=== PATIENT | male | born 1965 | race Caucasian/White ===

== ENCOUNTER 2017-12-03 14:36 | Emergency (ER) | payer BC, SELFPAY ==
[2017-12-03 14:37] VITALS: BP 144/101; PULSE 122; RESP 17; TEMP 36.9; O2SAT 98; BMI 30.9
--- NOTE | 2017-12-03 15:18 | EKG12_ITS ---
Test Reason : HYPERTENSION Blood Pressure : / mmHG Vent. Rate : 090 BPM Atrial Rate : 090 BPM P-R Int : 148 ms QRS Dur : 100 ms QT Int : 358 ms P-R-T Axes : 043 039 012 degrees QTc Int : 437 ms Normal sinus rhythm Normal ECG Confirmed by GRUPO WATERS, DIANA ([id number]), story editor IDALIA CARTWRIGHT ([id number]) on 12/05/2017 3:04:23 PM Referred By: CAROLIN Confirmed By:DIANA LOMBARDO MD
[2017-12-03 16:12] LABS: Absolute Lymphocyte Count 1.62 X10^3/ul (0.83-4.51); Absolute Neutrophil Count 4.3 X10^3/uL (2.0-7.7); Basophil# 0.03 X10^3/uL; Basophil% 0.5 % (0-1); Eosinophil# 0.06 X10^3/uL; Eosinophils% 0.9 % (0-5); Hematocrit 46.2 % (40-54); Hemoglobin 14.9 g/dl (13.0-16.5); Lymphocyte # 1.62 X10^3/ul (4.0); Mean Corp Hgb Conc 32.3 g/gl (32-36); Mean Corpuscular Volume 83.8 fL (80-94); Mean Platelet Vol. 9.4 fl (6.2-12.0); Monocyte# 0.48 X10^3/uL; Monocyte% 7.4 % (0-10); Neutrophil # 4.27 X10^3/uL (2.7-7.7); Platelet Count 239 K/mm3 (150-450); RBC Distribution Width CV 14.3 % (11.6-14.6); RBC Distribution Width SD 43.9 fl (35.1-43.9); Red Blood Count 5.51 M/mm3 (4.6-6.2); White Blood Count 6.5 K/mm3 (4.4-11.0)
[2017-12-03 16:23] LABS: POSITIVE COUNT NO; POSITIVE DIFFERENTIAL NO; POSITIVE MORPHOLOGY NO
[2017-12-03 16:34] VITALS: BP 140/89; PULSE 87; RESP 16
[2017-12-03 16:37] LABS: Anion Gap 6 (5-15); BUN 23 mg/dL (7-18); BUN/Creat Ratio 23.6 RATIO (10-20); Chloride 102 mmol/L (98-107); Creatinine, Serum 0.97 mg/dL (0.70-1.30); EST Glomerular Filtration Rate 85 mL/min (>60); Est Glom Filt Rate - Afr Amer 103 mL/min (>60); Estimated Creatinine Clearance 88.07 ml/min; Glucose 126 mg/dL (74-106); Potassium 4.4 mmol/L (3.5-5.1); Sodium Level 139 mmol/L (136-145)
--- NOTE | 2017-12-03 16:51 | ED.VISSUMM ---
- ER Visit Summary Date of Service: 12/03/17 Chief Complaint: Hypertension History of Present Illness: The patient is a 52 M who presents with elevated blood pressure. He is checked multiple times today and it was 184/95 and 160/105. He is using an arm cuff for this. He has a history of hypertension. He takes lisinopril/HCTZ 20/12.5. This is a recent increase in dosage for him. He denies any symptoms. He was recently placed on prednisone for chronic back pain. Physical Examination: Vital signs reviewed. HEENT exam unremarkable. Heart is regular rate and rhythm without murmurs. Lungs are clear to auscultation. Abdomen is soft and nontender. Extremities reveal no edema. Exam reveals midthoracic tenderness to palpation skin exam normal. Neurologic exam normal. Test Results: EKG is normal sinus rhythm with a rate of 90. No ST changes. Labs are normal except for glucose of 126 Emergency Department Course and Treatment: Patient was observed. Repeat blood pressure was 140/80 and then it went up to 150/100. I did give him 1 dose of lisinopril here. He will go home and continue his regular dose. He will keep a diary of his blood pressure readings and will follow up with his physician on Tuesday Treatment Plan: [] Disposition: Discharge Impression: Hypertension This note was generated with [employer] dictation software. It may contain incorrect words, spelling, and punctuation that were not noted in review of the chart prior to signing ED Disposition - Plan for ED Patient: Disposition: Home or Assisted Living Chief Complaint: Hypertension Instructions: ED HTN Established Referrals: James Rizzo MD [Primary Care Provider] -
[2017-12-03] MEDS: Lisinopril 10 MG Tablet PO (17:57)
[2017-12-03 17:58] VITALS: BP 143/96; PULSE 90; RESP 16
== END 2017-12-03 17:58 | disposition home or self-care (01) ==
PROVIDERS: Emergency Provider Emergency Medicine; Family Provider Family Medicine; PCP Family Medicine
DX: I10 Essential (primary) hypertension (principal); M54.9 Dorsalgia, unspecified; G89.29 Other chronic pain; K50.90 Crohn's disease, unspecified, without complications; Z79.82 Long term (current) use of aspirin; Z79.52 Long term (current) use of systemic steroids; Z79.899 Other long term (current) drug therapy
CPT/HCPCS: 80048; 85025; 93005; 99285; A4216

== ENCOUNTER 2018-06-23 22:24 | Emergency (ER) | payer BC, SELFPAY ==
[2018-06-23 22:26] VITALS: BP 119/77; PULSE 76; RESP 17; TEMP 36.8; O2SAT 97; BMI 30.8
--- NOTE | 2018-06-23 22:50 | CT_ITS ---
STUDY: CT ABDOMEN AND PELVIS WITHOUT CONTRAST REASON FOR EXAM: Male, 53 years old. Left lower quadrant pain and cramping, syncope x2, history of HMD, HTN, 80th, cholecystectomy. RADIATION DOSAGE (If Supplied By Facility): CTDIvol = ( 11.59 ) mGy, DLP = ( 642.81 ) mGycm TECHNIQUE: Transaxial 2.5 mm images were obtained from the dome of the diaphragm to the symphysis pubis without oral contrast, and without intravenous contrast. Sagittal and coronal images were reconstructed. This examination is limited for the evaluation of gastrointestinal, solid organs and vascular structures due to the lack of intravenous and oral contrast. Individualized dose optimization techniques were used for this CT. COMPARISON: CT abdomen and pelvis 07/22/2011 FINDINGS: The visualized lung bases are unremarkable. The visualized portions of the heart are within normal limits. Stable low-attenuation left hepatic lobe of approximately 0.8 x 1.4 cm. The smaller low attenuation in the right hepatic lobe on previous contrast enhanced CT is not appreciated on noncontrast current images. There are surgical clips in the gallbladder fossa consistent with a prior cholecystectomy. Normal spleen. Normal pancreas. Normal bilateral adrenal glands. The bilateral renal cysts on previous examination have increased in size, on the right side measuring 5.3 x 4.8 cm, there is a question of a additional smaller cyst and or septation coronal image 87, axial image 89 series 2. The left upper renal pole cyst has increased in size, currently measuring 3.3 x 4.2 cm, the posterior mid left renal cortical cyst has increased in size measuring currently 1.4 x 1.5 cm. There is no obstructive uropathy, obstructive renal or ureteral calculi. Normal visualized stomach. Normal small intestine. Normal colon. The appendix is visualized and appears normal. Image 69 series 601. Normal abdominal aorta. Normal inferior vena cava. Normal retroperitoneum. Normal urinary bladder. There is enlargement of the prostate gland. There is a small umbilical hernia containing fat. There is a large left inguinal hernia containing sigmoid colon without caliber change, dilatation or signs of ischemia. The hernia opening is 2.3 cm. The hernia sac measures at least 5.2 x 4.3 x 12 cm, however the inferior extension is not entirely imaged. There are degenerative changes of the visualized spine. There is straightening of the normal lordotic curve, a nonspecific finding, which may be due to positioning or which might be due to muscle spasm. CT/Abdomen/Pelvis without Cont IMPRESSION: 1. Left large inguinal hernia which appears to be increased in size and currently containing sigmoid colon without obstruction or compromise. 2. Bilateral renal cysts appear increased in size. The large right renal cyst may be complex, ultrasonographic correlation advised. 3. Stable low attenuation in the left hepatic lobe may represent cysts or hemangiomata. 4. Status post cholecystectomy. 5. Small umbilical hernia containing fat. 6. Prostate enlargement appears stable. Electronically Signed: Sybil Bautista MD at 0:35 EDT , Service support ,
--- NOTE | 2018-06-23 22:52 | ED.DCSUM_ITS ---
- ER Visit Summary Date of Service: 06/23/18 Chief Complaint: Abdominal pain, syncope History of Present Illness: The patient is a 53 M presents with family increasing left lower quadrant abdominal pain 1 hour prior to arrival. States was on the commode, got sweaty, called in significant other, he does try to walk, syncopal episode. Spouse caught him, but slightly bumped his head on the wall. This occurred twice. There is no current headache. States left lower quadrant pain has subsided. History of Crohn's disease currently not on medications. Multiple colonoscopies, last time was 5 years ago. No history of diverticulitis. Urine frequency. Normal bowel movements. No chest pains or shortness of breath. History of cholecystectomy. Physical Examination: General: Alert and oriented ?3, no acute distress HEENT: Normocephalic, atraumatic. Moist mucosa membranes Neck: supple, nontender. Cardiovascular: Regular rate and rhythm, no murmurs Respiratory: Normal breath sounds, symmetric, no distress Abdomen: Soft, left lower quadrant tenderness with deep palpation no guarding or rebound, nondistended, negative McBurney's or Maya's. Extremities: Nontender, no edema, pulses intact ?4 Neuro: no focal neurological deficits. Test Results: EKG: Sinus rate of 72, no ST changes. Isolated T wave inversion in leads III. White count 12. Hemoglobin 14. Creatinine 0.75. UA 25 leukocytes, blood 10. Urine culture pending. CT scan abdomen pelvis, large left inguinal hernia without obstruction or compromise, bilateral renal cysts. Emergency Department Course and Treatment: Patient left lower quadrant pain, nonsurgical abdomen. Patient with pain initially then syncopal episode likely vasovagal. EKG was normal. No chest pains or shortness of breath. Left lower quadrant workup initiated, white count 12. CAT scan shows no inflammatory changes however noted left inguinal hernia with no obstruction or strangulation. Also noted renal cyst, he has no flank pain. Urine noted leukocytes slight bl ood. Culture sent. On reevaluation check hernia region, he is nontender in this region, hernia was palpated. Started on Cipro. Discuss follow-up with his surgeon Dr. Chaparro as an outpatient. Signs and symptoms discussed to return. No heavy lifting. Reevaluation abdomen was soft and benign. Treatment Plan: [] Disposition: Discharge Impression: 1. Urinary tract infection 2. Left inguinal hernia nonobstructive This note was generated with [employer] dictation software. It may contain incorrect words, spelling, and punctuation that were not noted in review of the chart prior to signing ED Disposition - Plan for ED Patient: Disposition: Home or Assisted Living Chief Complaint: Syncope Diagnosis: Syncope and collapse, Left inguinal hernia, UTI (urinary tract infection) Instructions: ED Syncope Vasovagal, ED Hernia Inguinal, Understanding Urinary Tract Infections (UTIs) Prescriptions: Ciprofloxacin [Cipro] 500 mg PO BID #20 tablet Referrals: James Rizzo MD [Primary Care Provider] - Francisco Rviera MD [STAFF PHYSICIAN] - 3-5 Days Additional Instructions: Left inguinal hernia. No signs of obstruction or incarceration. No heavy lifting. Call your surgeon for follow-up, return if any worsening symptoms.
--- NOTE | 2018-06-23 22:53 | EKG12_ITS ---
Test Reason : SYNCOPE Blood Pressure : / mmHG Vent. Rate : 072 BPM Atrial Rate : 072 BPM P-R Int : 148 ms QRS Dur : 098 ms QT Int : 394 ms P-R-T Axes : 036 051 023 degrees QTc Int : 431 ms Poor data quality, interpretation may be adversely affected Normal sinus rhythm Normal ECG Confirmed by MOON WATERS, GUNNER ([id number]), purchase request editor IDALIA CARTWRIGHT ([id number]) on 06/26/2018 3:05:11 PM Referred By: KARIS Confirmed By:GUNNER MUSTAFA MD
[2018-06-23 23:13] LABS: Red Blood Cells-Urine 0 SEEN /hpf (0-5); Squamous Epithelial Cells - UA 0 SEEN /hpf (0-5)
[2018-06-23 23:26] LABS: Color, Urine Yellow (Yellow); Glucose, Dipstick Normal (Normal); Ketone-Dipstick 5 mg/dl (Negative); Leukocyte Esterase-Dipstick 25 /ul (Negative); Nitrite-Dipstick Negative (Negative); Occult Blood-Urine 10 /ul (Negative); Protein-Dipstick 30 mg/dl (Negative); Urine Bilirubin Dipstick Negative (Negative); Urine Clarity Clear (Clear); Urine Urobilinogen 1 mg/dl (Normal)
[2018-06-23] MEDS: 0.9% Normal Saline 1,000 ML 1000 ML IV (23:28)
[2018-06-23 23:38] LABS: Bacteria RARE /hpf (None Seen); Hyaline Cast 0-5 SEEN /lpf (0-5); Mucous, Urine 1+ /hpf (<or=2+); White Blood Cells 0-5 SEEN /hpf (0-5)
[2018-06-23 23:44] LABS: Absolute Lymphocyte Count 2.04 X10^3/ul (0.83-4.51); Absolute Neutrophil Count 9.2 X10^3/uL (2.0-7.7); Basophil# 0.03 X10^3/uL; Basophil% 0.3 % (0-1); Eosinophil# 0.04 X10^3/uL; Eosinophils% 0.3 % (0-5); Hematocrit 42.6 % (40-54); Hemoglobin 14.1 g/dl (13.0-16.5); Lymphocyte # 2.04 X10^3/ul (4.0); Mean Corp Hgb Conc 33.1 g/gl (32-36); Mean Corpuscular Hgb 27.4 pg (27.0-32.0); Mean Corpuscular Volume 82.7 fL (80-94); Mean Platelet Vol. 9.4 fl (6.2-12.0); Monocyte# 0.67 X10^3/uL; Monocyte% 5.6 % (0-10); Neutrophil # 9.18 X10^3/uL (2.7-7.7); Neutrophil % 76.6 % (47-70); Platelet Count 279 K/mm3 (150-450); RBC Distribution Width CV 14.2 % (11.6-14.6); RBC Distribution Width SD 42.3 fl (35.1-43.9); Red Blood Count 5.15 M/mm3 (4.6-6.2)
[2018-06-23 23:49] LABS: POSITIVE COUNT NO; POSITIVE DIFFERENTIAL NO; POSITIVE MORPHOLOGY NO
[2018-06-23 23:54] LABS: Anion Gap 11 (5-15); BUN 20 mg/dL (7-18); BUN/Creat Ratio 21.1 RATIO (10-20); Calcium,Total 9.1 mg/dL (8.5-10.1); Chloride 104 mmol/L (98-107); Creatinine, Serum 0.95 mg/dL (0.70-1.30); EST Glomerular Filtration Rate 88 mL/min (>60); Est Glom Filt Rate - Afr Amer 107 mL/min (>60); Estimated Creatinine Clearance 91.78 ml/min; Glucose 128 mg/dL (74-106); Potassium 3.3 mmol/L (3.5-5.1); Sodium Level 142 mmol/L (136-145)
[2018-06-24 00:25] VITALS: BP 115/72; PULSE 76; RESP 18; O2SAT 96
[2018-06-24 01:00] VITALS: BP 136/84; PULSE 79; RESP 18; O2SAT 97
[2018-06-24] MEDS: Ciprofloxacin 500 MG Tablet PO (01:37)
== END 2018-06-24 01:40 | disposition home or self-care (01) ==
PROVIDERS: Emergency Provider Emergency Medicine; Family Provider Family Medicine; PCP Family Medicine
DX: N39.0 Urinary tract infection, site not specified (principal); K40.90 Unilateral inguinal hernia, without obstruction or gangrene, not specified as recurrent; R55 Syncope and collapse; N28.1 Cyst of kidney, acquired; K21.9 Gastro-esophageal reflux disease without esophagitis; I10 Essential (primary) hypertension; E78.00 Pure hypercholesterolemia, unspecified; K50.90 Crohn's disease, unspecified, without complications; Z90.49 Acquired absence of other specified parts of digestive tract; Z79.82 Long term (current) use of aspirin; Z79.899 Other long term (current) drug therapy
CPT/HCPCS: 74176; 80048; 81001; 85025; 87086; 87088; 93005; 96360; 99285; J7030; A4216

== ENCOUNTER 2018-06-24 13:07 | Observation (INO) | payer BC, SELFPAY ==
[2018-06-24 13:10] VITALS: BP 146/87; PULSE 109; RESP 20; TEMP 36.7; O2SAT 97
[2018-06-24 13:25] VITALS: BP 150/93; PULSE 111; RESP 18; O2SAT 97
[2018-06-24 13:31] LABS: Bedside Glucose 152 mg/dL (70-110)
[2018-06-24] MEDS: 0.9% Normal Saline 1,000 ML 1000 ML IV (14:00)
[2018-06-24 14:11] LABS: Bacteria 0 SEEN /hpf (None Seen); Mucous, Urine 0 SEEN /hpf (<or=2+); Red Blood Cells-Urine 0 SEEN /hpf (0-5); Squamous Epithelial Cells - UA 0 SEEN /hpf (0-5); White Blood Cells 0 SEEN /hpf (0-5)
[2018-06-24 14:14] LABS: Absolute Neutrophil Count 6.9 X10^3/uL (2.0-7.7); Basophil# 0.02 X10^3/uL; Basophil% 0.2 % (0-1); Eosinophil# 0.02 X10^3/uL; Eosinophils% 0.2 % (0-5); Hemoglobin 13.6 g/dl (13.0-16.5); Lymphocyte % 18.8 % (19-41); Mean Corp Hgb Conc 32.4 g/gl (32-36); Mean Corpuscular Volume 83.5 fL (80-94); Mean Platelet Vol. 9.2 fl (6.2-12.0); Monocyte# 0.43 X10^3/uL; Monocyte% 4.8 % (0-10); Neutrophil # 6.85 X10^3/uL (2.7-7.7); Neutrophil % 75.8 % (47-70); Platelet Count 244 K/mm3 (150-450); RBC Distribution Width CV 14.2 % (11.6-14.6); RBC Distribution Width SD 43.2 fl (35.1-43.9); Red Blood Count 5.03 M/mm3 (4.6-6.2)
[2018-06-24 14:16] LABS: Color, Urine Yellow (Yellow); Glucose, Dipstick Normal (Normal); Ketone-Dipstick Negative (Negative); Leukocyte Esterase-Dipstick Negative /ul (Negative); Nitrite-Dipstick Negative (Negative); Occult Blood-Urine Negative /ul (Negative); Protein-Dipstick Negative (Negative); Urine Bilirubin Dipstick Negative (Negative); Urine Clarity Clear (Clear); Urine Urobilinogen Normal (Normal)
[2018-06-24 14:16] LABS: POSITIVE COUNT NO; POSITIVE DIFFERENTIAL NO; POSITIVE MORPHOLOGY NO
[2018-06-24 14:32] LABS: AST(SGOT) 27 U/L (15-37); Alanine Aminotransfer ALT/SGPT 42 U/L (16-61); Albumin, Serum 3.8 g/dL (3.2-5.0); Alkaline Phosphatase 75 U/L (45-117); Anion Gap 7 (5-15); BUN 19 mg/dL (7-18); BUN/Creat Ratio 20.2 RATIO (10-20); Calcium,Total 8.8 mg/dL (8.5-10.1); Chloride 102 mmol/L (98-107); Creatinine, Serum 0.94 mg/dL (0.70-1.30); EST Glomerular Filtration Rate 89 mL/min (>60); Est Glom Filt Rate - Afr Amer 107 mL/min (>60); Estimated Creatinine Clearance 92.76 ml/min; Globulin 3.9 g/dL (2.2-4.2); Glucose 159 mg/dL (74-106); Potassium 3.5 mmol/L (3.5-5.1); Protein, Total 7.7 g/dL (6.4-8.2); Sodium Level 137 mmol/L (136-145)
[2018-06-24 15:02] LABS: Lactic Acid 1.7 mmol/L (0.4-2.0)
[2018-06-24 15:15] VITALS: BP 167/86
--- NOTE | 2018-06-24 15:20 | ED.VISSUMM ---
- ER Visit Summary Date of Service: 06/24/18 Chief Complaint: [Abdominal pain and rectal bleeding] History of Present Illness: The patient is a 53 M [presents the emergency department complaint of abdominal pain and back pain that started initially yesterday. Patient was seen in the emergency department yesterday and had blood work as well as urinalysis and a CT scan of the pelvis that was unremarkable. Patient was diagnosed with a urinary tract infection and started on Cipro. Today patient is feeling very weak and continues to have lower abdominal pain and cramping as well as pain in his low back that is diffuse. Patient states that yesterday he did have 2 episodes of syncope. Patient does have a history of colitis. He is not on any blood thinners. He denies any fevers. He denies recent travel or surgery. He denies any recent antibiotic usage other than the Cipro that he was started on yesterday.] Physical Examination: [HEENT-PERRLA, EOMI. Cranial nerves II through XII grossly intact. TMs clear. Mucous membranes moist. No adenopathy. Cardiovascular-regular rate and rhythm without murmur or ectopy Lungs-clear to auscultation, chest wall stable without crepitus or subcu emphysema Abdomen-normoactive bowel sounds, soft. Patient has diffuse tenderness on palpation. There is no rebound, rigidity, or perineal signs. Rectal exam-patient had no rectal fissures noted and no hemorrhoids noted. There was bright red blood noted on the finger. With no significant stool in the rectal vault. Extremities-intact ?4, normal range of motion, normal pulses, atraumatic] Test Results: [CBC with differential obtained showed a white count 9.0, hemoglobin 13.6, hematocrit 42, platelet 249. Chemistries unremarkable. LFTs unremarkable. Urinalysis was unremarkable.] Emergency Department Course and Treatment: [I evaluated patient's CT results from yesterday and it was noted that patient had a large left inguinal hernia with part of the colon within it but no evidence of obstruction or incarceration. Patient really has no tenderness over this area. This point given that he is having bright red blood from his rectum recommended admission.] Treatment Plan: [Admit for further workup and evaluation.] Disposition: [Admit] Impression: [Abdominal pain Rectal bleeding lower-stable] This note was generated with [employer] dictation software. It may contain incorrect words, spelling, and punctuation that were not noted in review of the chart prior to signing ED Disposition - Plan for ED Patient: Chief Complaint: General Illness Referrals: James Rizzo MD [Primary Care Provider] -
--- NOTE | 2018-06-24 15:24 | ED.DCSUM_ITS ---
- ER Visit Summary Date of Service: 06/24/18 Chief Complaint: [Abdominal pain and rectal bleeding] History of Present Illness: The patient is a 53 M [presents the emergency department complaint of abdominal pain and back pain that started initially yesterday. Patient was seen in the emergency department yesterday and had blood work as well as urinalysis and a CT scan of the pelvis that was unremarkable. Patient was diagnosed with a urinary tract infection and started on Cipro. Today patient is feeling very weak and continues to have lower abdominal pain and cramping as well as pain in his low back that is diffuse. Patient states that yesterday he did have 2 episodes of syncope. Patient does have a history of colitis. He is not on any blood thinners. He denies any fevers. He denies recent travel or surgery. He denies any recent antibiotic usage other than the Cipro that he was started on yesterday.] Physical Examination: [HEENT-PERRLA, EOMI. Cranial nerves II through XII grossly intact. TMs clear. Mucous membranes moist. No adenopathy. Cardiovascular-regular rate and rhythm without murmur or ectopy Lungs-clear to auscultation, chest wall stable without crepitus or subcu emphysema Abdomen-normoactive bowel sounds, soft. Patient has diffuse tenderness on palpation. There is no rebound, rigidity, or perineal signs. Rectal exam-patient had no rectal fissures noted and no hemorrhoids noted. There was bright red blood noted on the finger. With no significant stool in the rectal vault. Extremities-intact ?4, normal range of motion, normal pulses, atraumatic] Test Results: [CBC with differential obtained showed a white count 9.0, hemoglobin 13.6, hematocrit 42, platelet 249. Chemistries unremarkable. LFTs unremarkable. Urinalysis was unremarkable.] Emergency Department Course and Treatment: [I evaluated patient's CT results from yesterday and it was noted that patient had a large left inguinal hernia with part of the colon within it but no evidence of obstruction or inca rceration. Patient really has no tenderness over this area. This point given that he is having bright red blood from his rectum recommended admission.] Treatment Plan: [Admit for further workup and evaluation.] Disposition: [Admit] Impression: [Abdominal pain Rectal bleeding lower-stable] This note was generated with [employer] dictation software. It may contain incorrect words, spelling, and punctuation that were not noted in review of the chart prior to signing ED Disposition - Plan for ED Patient: Chief Complaint: General Illness Referrals: James Rizzo MD [Primary Care Provider] -
--- NOTE | 2018-06-24 15:57 | HP.PCM_ITS ---
Problem List (1) Syncope and collapse Status: Resolved (2) Left inguinal hernia Status: Chronic (3) UTI (urinary tract infection) Status: Acute (4) Dysphagia Status: Resolved (5) Anxiety Status: Chronic (6) Enlarged prostate Status: Chronic (7) Chronic low back pain Status: Chronic (8) Insomnia Status: Chronic (9) Poor dentition Status: Chronic (10) IBS (irritable bowel syndrome) Status: Chronic (11) HLD (hyperlipidemia) Status: Chronic (12) Ulcerative colitis Status: Chronic (13) Enlarged tonsils Status: Resolved (14) Benign essential HTN Status: Chronic History of Present Illness Date of Admission: 06/24/18 Chief Complaint: Abdominal pain, diarrhea, blood per rectum. The patient is a 53 year old M who presents to the Emergency Room due to abdominal pain, diarrhea and blood per rectum. Patient was initially seen in the emergency room yesterday due to abdominal pain and lower back pain. He was diagnosed with UTI at that time and was started on Cipro. Complains of generalized weakness and continued abdominal pain as well as blood in stool which he states is minimal. Patient reports two episodes of syncope yesterday. CT of the abdomen last night showed left large inguinal hernia, bilateral renal cysts, stable low attenuation in the left hepatic lobe, small umbilical hernia, prostate enlargement. Patient reports a history of ulcerative colitis with colonoscopy in the past by Dr. Chaparro. He thinks this was approximately 5 years ago. Previously on mesalamine which he stopped taking on his own a few years ago. He states he was taking mesalamine as needed for abdominal pain and diarrhea due to UC exacerbation. Patient's other past medical history includes hypertension, hyperlipidemia, degenerative disc disease, enlarged prostate, anxiety. Past Medical History Past Medical History (Chronic Problems): Chronic Problems Left inguinal hernia (Chronic) Anxiety (Chronic) Enlarged prostate (Chronic) Chronic low back pain (Chronic) Insomnia (Chronic) Poor dentition (Chronic) IBS (irritable bowel syndrome) (Chronic) HLD (hyperlipidemia) (Chronic) Ulcerative colitis (Chronic) Benign essential HTN (Chronic) Allergies amoxicillin Allergy (Verified 06/24/18 13:10) Rash tramadol Allergy (Verified 06/24/18 13:10) Other gabapentin Adverse Reaction (Verified 06/24/18 13:10) Other Home Medications: Ambulatory Orders Medication Instructions Recorded Omeprazole Magnesium [Prilosec Otc] 20 mg PO DAILY PRN PRN 04/04/17 Aspirin [Aspirin, Baby] 81 mg PO DAILY@0800 12/03/17 Atorvastatin Calcium 20 mg PO DAILY 12/03/17 Lisinopril/Hydrochlorothiazide 1 tablet PO DAILY 12/03/17 [Zestoretic 20/12.5 Tablet] Fish Oil/Dha/Epa [Fish Oil 1,200 1 each PO DAILY 06/23/18 mg Fish Oil] Ciprofloxacin [Cipro] 500 mg PO BID #20 tablet 06/24/18 Surgical History: cholecystectomy, - - Multiple colonoscopies Psychiatric History: Anxiety Lives: Spouse/ Significant Other Smoking Status: Never smoker Alcohol: None Drugs: None - *Family History Maternal History Items: Cancer - mother with bladder cancer, Diabetes, Hypertension Paternal History Items: Cancer - father with prostate CA, Diabetes, Heart Disease - father had CABG at 44 YOA, Hypertension, - - father has dementia Review of Systems Constitutional: Reports: Fatigue. Denies: Anorexia, Chills HEENT: Denies: Head Aches, Sinus Congestion, Sinus Drainage Cardiovascular: Reports: Syncope - Yesterday X2. Denies: Chest Pain, Edema, Palpitations Respiratory: Denies: Cough, Shortness of breath at rest, Sputum production Gastrointestinal: Reports: Abdominal Pain, Diarrhea, Hematochezia, Nausea. Denies: Hematemesis, Vomiting Genitourinary: Denies: Dysuria Musculoskeletal: Reports: Back Pain - Chronic. Denies: Joint Pain, Joint Tenderness Skin: Denies: Rash, Wounds Neurological: Denies: Numbness, Tingling, Focal weakness Psychiatric: Reports: Anxiety. Denies: Depression, Homicidal Ideations, Suicidal Ideations Hematologic/ Lymphatic: Denies: Easy Bruising, Easy Bleeding VTE Information - Inpt Only VTE Present on Admission: No VTE Mechan Device Prophylaxis: SCD's VTE Pharm Prophylaxis ordered?: No Reason prophylaxis not ordered:: Medical Contraindication - Physical Exam General: Alert, Oriented x3, Cooperative, No apparent distress HEENT: Atraumatic, PERRLA, EOMI, Normocephalic Neck: Supple, No JVD, Negative Carotid Bruits Lungs: Clear to auscultation, Normal air movement Cardiovascular: Regular rate, Regular Rhythm, Normal S1, Normal S2, No murmurs Abdomen: Bowel Sounds Present, Soft, Non Tender, Non-Distended, Obese Extremities: No clubbing, No cyanosis, No edema, Capillary Refill Less than 3 Seconds Skin: No rashes Musculoskeletal: No Tenderness to Palpation of Joints or Extremities Neurological: Cranial nerves II-XII grossly intact, Neuro grossly intact Psych/Mental Status: Normal Affect, Appropriate Vital Signs Temp Pulse Resp BP Pulse Ox 98.1 F 111 H 18 167/86 H 97 06/24/18 13:10 06/24/18 13:25 06/24/18 13:25 06/24/18 15:15 06/24/18 13:25 Oxygen Delivery Method Room Air Weight: 209 lb 10.554 oz Body Mass Index (BMI) 30.0 Finger Stick Blood Glucose 135 Laboratory Tests Past 24 Hrs 06/24/18 06/24/18 06/24/18 14:00 14:00 14:00 WBC 9.0 RBC 5.03 Hgb 13.6 Hct 42.0 MCV 83.5 MCH 27.0 MCHC 32.4 RDW 14.2 RDW Differential 43.2 Plt Count 244 MPV 9.2 Immature Gran % (Auto) 0.200 Neut % (Auto) 75.8 H Lymph % (Auto) 18.8 L [place] % (Auto) 4.8 Eos % (Auto) 0.2 Baso % (Auto) 0.2 Absolute Neuts (auto) 6.9 Absolute Lymphs (auto) 1.70 Total Counted Not Reportable Sodium 137 Potassium 3.5 Chloride 102 Carbon Dioxide 28.0 Anion Gap 7 BUN 19 H Creatinine 0.94 Estim Creat Clear Calc 92.76 Est GFR (MDRD) Af Amer 107 Est GFR (MDRD) Non-Af 89 BUN/Creatinine Ratio 20.2 H Glucose 159 H Lactic Acid 1.7 Calcium 8.8 Total Bilirubin 0.90 AST 27 ALT 42 Alkaline Phosphatase 75 Total Protein 7.7 Albumin 3.8 Globulin 3.9 Albumin/Globulin Ratio 1.0 Urine Color Urine Clarity Urine pH Ur Specific [place] Urine Protein Urine Glucose (UA) Urine Ketones Urine Occult Blood Urine Nitrite Urine Bilirubin Urine Urobilinogen Ur Leukocyte Esterase Urine RBC Urine WBC Ur Squamous Epith Cells Urine Bacteria Urine Mucus 06/24/18 14:05 WBC RBC Hgb Hct MCV MCH MCHC RDW RDW Differential Plt Count MPV Immature Gran % (Auto) Neut % (Auto) Lymph % (Auto) [place] % (Auto) Eos % (Auto) Baso % (Auto) Absolute Neuts (auto) Absolute Lymphs (auto) Total Counted Sodium Potassium Chloride Carbon Dioxide Anion Gap BUN Creatinine Estim Creat Clear Calc Est GFR (MDRD) Af Amer Est GFR (MDRD) Non-Af BUN/Creatinine Ratio Glucose Lactic Acid Calcium Total Bilirubin AST ALT Alkaline Phosphatase Total Protein Albumin Globulin Albumin/Globulin Ratio Urine Color Yellow Urine Clarity Clear Urine pH 7.0 Ur Specific [place] 1.010 Urine Protein Negative Urine Glucose (UA) Normal Urine Ketones Negative Urine Occult Blood Negative Urine Nitrite Negative Urine Bilirubin Negative Urine Urobilinogen Normal Ur Leukocyte Esterase Negative Urine RBC 0 SEEN Urine WBC 0 SEEN Ur Squamous Epith Cells 0 SEEN Urine Bacteria 0 SEEN Urine Mucus 0 SEEN POC Glucose 06/24/18 13:25 POC Glucose 152 H Assessment/Plan All Active Problems UTI (urinary tract infection) (Acute) Dysphagia (Resolved) Enlarged tonsils (Resolved) History of Baltazar's palsy (Resolved) Syncope and collapse (Resolved) 1. Blood per rectum, proctitis-Hemodynamically stable. Reports previously taking mesalamine. Repeat labs in A.M. IV solumedrol with oral taper at SD. Anticipate SD home tomorrow with outpatient follow up with Dr. Rivera. 2. Recent diagnosis UTI- Placed on cipro last night in ED. Continue pending urine culture. 3. Hypertension- Mildly elevated on admission. Continue home lisinopril/HCTZ. 4. Hyperlipidemia-hold statin given OBS status. Can resume at [facility]. 5. Prediabetes- Diet controlled. 6. Degenerative disc disease- PRN tylenol. 7. Enlarged prostate- Not on regimen. 8. Anxiety-Not on regimen. DVT prophylaxis- SCDs. This patient was seen by Jessica Bravo NP-Eleonora under the supervision of Dr. Youngblood.
[2018-06-24 16:20] VITALS: BP 148/78; PULSE 93; RESP 18; TEMP 36.6; O2SAT 96; BMI 29.9
[2018-06-24] MEDS: 0.9% NaCl Peripheral Flush Adult/Peds IV (16:56)
[2018-06-24] MEDS: 0.9% Normal Saline 1,000 ML 100 ML IV ×2 (16:56→21:43)
[2018-06-24] MEDS: Ciprofloxacin 500 MG Tablet PO (21:42)
[2018-06-24 22:20] VITALS: BP 128/72; PULSE 79; RESP 18; TEMP 37.7; O2SAT 96
[2018-06-25 04:00] VITALS: BP 113/72; PULSE 79; RESP 17; TEMP 36.6; O2SAT 94
[2018-06-25 05:33] LABS: Absolute Lymphocyte Count 0.96 X10^3/ul (0.83-4.51); Absolute Neutrophil Count 6.6 X10^3/uL (2.0-7.7); Basophil# 0.01 X10^3/uL; Basophil% 0.1 % (0-1); Hematocrit 39.5 % (40-54); Hemoglobin 13.1 g/dl (13.0-16.5); Lymphocyte # 0.96 X10^3/ul (4.0); Lymphocyte % 12.5 % (19-41); Mean Corp Hgb Conc 33.2 g/gl (32-36); Mean Corpuscular Hgb 27.6 pg (27.0-32.0); Mean Corpuscular Volume 83.2 fL (80-94); Mean Platelet Vol. 9.8 fl (6.2-12.0); Monocyte# 0.07 X10^3/uL; Monocyte% 0.9 % (0-10); Neutrophil # 6.64 X10^3/uL (2.7-7.7); Neutrophil % 86.4 % (47-70); Platelet Count 250 K/mm3 (150-450); RBC Distribution Width SD 42.2 fl (35.1-43.9); Red Blood Count 4.75 M/mm3 (4.6-6.2); White Blood Count 7.7 K/mm3 (4.4-11.0)
[2018-06-25 05:43] LABS: POSITIVE COUNT NO; POSITIVE DIFFERENTIAL NO; POSITIVE MORPHOLOGY NO
--- NOTE | 2018-06-25 08:59 | DCINST_ITS ---
You will use the following diet at home:: No restrictions Discharge Activity: Return to Normal Activity Call your doctor if you observe: Shortness of breath, Dizziness, Fainting spells, Chest pain, - - Increased blood per rectum. Allergies/Adverse Reactions: Allergies amoxicillin Allergy (Verified 06/24/18 13:10) Rash tramadol Allergy (Verified 06/24/18 13:10) Other gabapentin Adverse Reaction (Verified 06/24/18 13:10) Other Medications to take at Discharge Omeprazole Magnesium [Prilosec Otc] 20 mg PO DAILY 04/04/17 Aspirin [Aspirin, Baby] 81 mg PO DAILY@0800 12/03/17 Atorvastatin Calcium 20 mg PO DAILY 12/03/17 Lisinopril/Hydrochlorothiazide [Zestoretic 20/12.5 Tablet] 1 tablet PO DAILY 12/03/17 Fish Oil/Dha/Epa [Fish Oil 1,200 mg Fish Oil] 1 each PO DAILY 06/23/18 Ciprofloxacin [Cipro] 500 mg PO BID #20 tablet 06/24/18 Prednisone See Taper PO UD #48 tab 06/25/18 The following prescriptions were given: Prednisone See Taper PO UD #48 tab Primary Care Physician: James Rizzo MD [Primary Care Provider] - Please follow up with your Primary Care Physician in: 1 Week Test Results: Test results from this visit will be discussed in further detail at your follow- up appointment, if applicable. Proposed Discharge Date: 06/25/18
--- NOTE | 2018-06-25 09:04 | DS.PCM_ITS ---
Discharge Date and Diagnosis Date of Admission: 06/24/18 Date of Discharge: 06/25/18 - Primary Discharge Diagnosis 1. Blood per rectum, proctitis 2. Recent diagnosis UTI 3. Hypertension 4. Hyperlipidemia 5. Prediabetes 6. Degenerative disc disease 7. Enlarged prostate 8. Anxiety - Secondary Discharge Diagnosis Chronic Problems Anxiety (Chronic) Enlarged prostate (Chronic) Chronic low back pain (Chronic) Insomnia (Chronic) Poor dentition (Chronic) IBS (irritable bowel syndrome) (Chronic) HLD (hyperlipidemia) (Chronic) Ulcerative colitis (Chronic) Benign essential HTN (Chronic) Hospital Course and Treatment Operations: None Procedures: None Summary of Care Provided: The patient is a 53 year old M admitted 06/24/2018 due to abdominal pain, diarrhea, blood per rectum. He has a past medical history of hypertension, hyperlipidemia, prediabetes, degenerative disc disease, enlarged prostate, anxiety. Patient has not had any stool since being admitted. Denies further abdominal pain. CT of the abdomen 06/23/2018 showed left large inguinal hernia, bilateral renal cysts, stable low attenuation in the left hepatic lobe, small umbilical hernia, prostate enlargement. Patient reports a history of ulcerative colitis with colonoscopy in the past by Dr. Rivera. UC not confirmed per records. Patient was noted to have proctitis in the past. Treated with IV Solu- Medrol. Will discharge on prednisone taper. Follow-up with primary care physician in 1 week. Patient recently placed on Cipro for UTI. UA appears to be fairly unremarkable. Urine culture pending. Patient will complete previously prescribed Cipro at discharge. Other chronic medical conditions as noted above are stable at this time. General: Alert, Oriented x3, Cooperative, No apparent distress HEENT: Atraumatic, PERRLA, EOMI, Normocephalic Neck: Supple, No JVD, Negative Carotid Bruits Lungs: Clear to auscultation, Normal air movement Cardiovascular: Regular rate, Regular Rhythm, Normal S1, Normal S2, No murmurs Abdomen: Bowel Sounds Present, Soft, Non Tender, Non-Distended, Obese Extremities: No clubbing, No cyanosis, No edema, Capillary Refill Less than 3 Seconds Skin: No rashes Musculoskeletal: No Tenderness to Palpation of Joints or Extremities Neurological: Cranial nerves II-XII grossly intact, Neuro grossly intact Psych/Mental Status: Normal Affect, Appropriate Patient seen exam prior to discharge. Physical assessment as noted above. Patient stable for discharge home with follow-up her conditions as noted above. This patient was seen by JONATHAN Allen under the supervision of Dr. Youngblood. Discharge Diet: No Restrictions Discharge Activity: Return to Normal Activity Call your doctor if you observe: Shortness of breath, Dizziness, Fainting spells, Chest pain, - - Increased blood per rectum. Home Medications: Medications to take at Discharge Omeprazole Magnesium [Prilosec Otc] 20 mg PO DAILY 04/04/17 Aspirin [Aspirin, Baby] 81 mg PO DAILY@0800 12/03/17 Atorvastatin Calcium 20 mg PO DAILY 12/03/17 Lisinopril/Hydrochlorothiazide [Zestoretic 20/12.5 Tablet] 1 tablet PO DAILY 12/03/17 Fish Oil/Dha/Epa [Fish Oil 1,200 mg Fish Oil] 1 each PO DAILY 06/23/18 Ciprofloxacin [Cipro] 500 mg PO BID #20 tablet 06/24/18 Prednisone See Taper PO UD #48 tab 06/25/18 Following Prescrptions Were Given to Patient: Prednisone See Taper PO UD #48 tab Primary Care Physician: James Rizzo MD [Primary Care Provider] - Please follow up with your Primary Care Physician in: 1 Week Disposition: Home Minutes spent on discharge:: 35 Patient Condition:: Stable Medical Necessity - Tobacco Use Smoking Status: Never smoker Meaningful Use Info Meaningful Use Diagnoses (Choose all that apply): None applicable
[2018-06-25 10:00] VITALS: BP 136/80; PULSE 85; RESP 16; TEMP 36.9; O2SAT 97
[2018-06-25] MEDS: Lisinopril 20 MG Tablet PO (10:19)
[2018-06-25] MEDS: HYDROCHLOROTHIAZIDE 12.5 MG CAPSULE PO (10:19)
[2018-06-25] MEDS: Ciprofloxacin 500 MG Tablet PO (10:19)
== END 2018-06-25 10:23 | disposition home or self-care (01) ==
LOC: ED 14:56 → MS3 15:55
PROVIDERS: Admitting Provider Internal Medicine; Emergency Provider Emergency Medicine; Family Provider Family Medicine; PCP Family Medicine; Visit Provider Internal Medicine
DX: K62.89 Other specified diseases of anus and rectum (principal); Z23 Encounter for immunization; I10 Essential (primary) hypertension; E78.5 Hyperlipidemia, unspecified; K62.5 Hemorrhage of anus and rectum; N40.0 Benign prostatic hyperplasia without lower urinary tract symptoms; R73.03 Prediabetes; Z79.899 Other long term (current) drug therapy; Z79.82 Long term (current) use of aspirin; K58.9 Irritable bowel syndrome, unspecified
CPT/HCPCS: 36415; 80053; 81001; 82962; 83605; 85025; 96361; 96374; 96376; 99218; 99282; J7030; 90686; A4216; G0378

== ENCOUNTER 2018-06-28 05:48 | Emergency (ER) | payer BC, SELFPAY ==
[2018-06-28 05:49] VITALS: BP 156/100; PULSE 111; RESP 17; O2SAT 96; BMI 29.2
--- NOTE | 2018-06-28 06:39 | CT_ITS ---
STUDY: CT BRAIN WITHOUT CONTRAST REASON FOR EXAM: Male, 53 years old. Headache, vertigo, near syncope RADIATION DOSAGE (If Supplied By Facility): CTDIvol = ( 44.99 ) mGy, DLP = ( 762.36 ) mGycm TECHNIQUE: Transaxial CT imaging of the brain was performed without administration of intravenous contrast material. Multiplanar coronal and sagittal images were reformatted. Individualized dose optimization techniques were used for this CT. COMPARISON: CT brain noncontrast 04/04/2017. 03/13/2016. FINDINGS: Normal soft tissue structures. Normal calvarium. Normal size ventricles and extra-axial spaces for the patient's age. Normal white matter tracts of the cerebral hemispheres. Normal basal ganglia and thalami. Normal brainstem. Normal cerebellum. There is no intracranial hemorrhage. There are no findings of an acute ischemic infarction. Small stable round low-attenuation right medial antrum likely small retention cyst. The bilateral mastoid air cells are clear. CT/Brain/Head without Contrast IMPRESSION: There is no acute intracranial pathology. There is no significant interval change. Electronically Signed: Sybil Bautista MD at 7:13 EDT , Service support ,
--- NOTE | 2018-06-28 06:39 | ED.VIS.GEN ---
History of Present Illness <AnyaTravis lomax - Last Filed: 06/28/18 08:16> Informant: Patient Narrative: Patient states he has been feeling very fatigued/malaised for the past 24 hours or so. This morning he got up and bent over and suddenly felt dizzy. He describes it as lightheaded, but states also that it felt like he was off balance and about to fall. If he stood up and remains still, he did not have any symptoms. Simply turning his head does not give him any symptoms. Associated with the dizziness is occipital headache that feels like significant pressure in addition to numbness that he feels in his occipital region but nowhere else. No numbness or focal weakness in his extremities although he feels generally weak and tired, he notices it more in his lower extremities but again denies any numbness. No pain in his back, chest, ears, no otorrhea, no tinnitus. He denies a recent viral infection, but states that he has had some nasal congestion recently. He was recently here in the ER several times for similar symptoms, that he described as lightheadedness and actually had 3 different syncopal episodes that were designated likely vasovagal in nature because he was having abdominal problems at the same time. He states he is still having some soreness in his lower abdomen but no significant pains and no vomiting. He was diagnosed with an inguinal hernia containing sigmoid colon on CT scan. He has not yet followed up as he was just recently discharged from the hospital regarding these issues. He states the dizziness that he has had this morning has been intermittent for about 2 weeks or so. <Diony Zaldivar - Last Filed: 07/08/18 07:19> Chief Complaint: General Illness Past Medical History <AnyaTravis - Last Filed: 06/28/18 08:16> Surgical History: cholecystectomy, - - Multiple colonoscopies Smoking Status: Never smoker - Family History Maternal Family History: Reports: Cancer - mother with bladder cancer, Diabetes, Hypertension Paternal Family History: Reports: Cancer - father with prostate CA, Diabetes, Heart Disease - father had CABG at 44 YOA, Hypertension, - - father has dementia <Diony Zaldivar - Last Filed: 07/08/18 07:19> - Allergies and Home Meds Allergies/Adverse Reactions: Allergies amoxicillin Allergy (Verified 06/28/18 05:53) Rash tramadol Allergy (Verified 06/28/18 05:53) Other gabapentin Adverse Reaction (Verified 06/28/18 05:53) Other Primary Care Physician: James Rizzo MD [Primary Care Provider] - 3-5 Days if not improving Review of Systems General: Reports: Malaise. Denies: Chills, Fever Eyes: Reports: Blurred Vision - bilaterally - intermittently x months -- not associated w/ current sx. Denies: Diplopia ENT: Reports: - - nasal congestion recently. Denies: Bilateral ear pain, Rhinorrhea, Sore throat Cardiovascular: Denies: Chest pain, Palpitations, Heart racing Respiratory: Denies: Dyspnea, Cough Gastrointestinal: Reports: Abdominal pain - off and on lower abd, Nausea - off and on. Denies: Vomiting, Diarrhea, Melena, Hematochezia Genitourinary: Denies: Dysuria, Hematuria, Frequency Musculoskeletal: Denies: Neck pain, Back pain, Swelling, Extremity Pain Skin: Denies: Rash, Wounds Neurological: Reports: Headache - occipital, Numbness - occipital scalp/head. Denies: Weakness Endocrine: Denies: Polyuria, Polydipsia Allergy: Denies: Uticaria, Swelling of the mouth, Swelling of the tongue <Diony Zaldivar - Last Filed: 07/08/18 07:19> Physical Exam Vital Signs/Narrative: Vital Signs Pulse Pulse Pulse Pulse Resp BP BP 06/28/18 06:43 80 75 90 129/83 H 06/28/18 05:49 111 H 17 156/100 H BP BP Pulse Ox 06/28/18 06:43 135/85 H 122/88 H 06/28/18 05:49 96 <Travis Joyner - Last Filed: 06/28/18 08:16> Vital Signs/Narrative: Vital Signs Pulse Resp BP Pulse Ox 06/28/18 05:49 111 H 17 156/100 H 96 Inital Vital Signs reviewed: Yes General: Well nourished, Well developed Head: Normocephalic, Atraumatic Eyes: Perrl, EOMI - w/ fatigueable horiz nystagmus bilat, no vertical or rotatory nystagmus ENT: Moist mucous membranes, No rhinorrhea, TM's clear. Negative for: Nasal congestion Neck: Supple, Nontender, No lymphadenopathy Cardiovascular: Regular rate, Regular rhythm, No murmurs Respiratory: No distress, CTA bilaterally, Chest nontender Abdomen: Soft, Nontender, Nondistended, Normal bowel sounds, - - no hernia palpable while lying supine. Back: Nontender, Normal Inspection. Negative for: CVA tenderness Extremities: Nontender, No edema Skin: Normal color, No rash Neurological: Alert, Oriented x3, Cranial nerves II-XII grossly intact, Normal Strength, Normal Sensation, Normal DTR, - - nml FTN and HTS bilat. Negative [place]-Hallpike bilat. Psychological: Normal affect <Diony Zaldivar - Last Filed: 07/08/18 07:19> Diagnostic/Tx/Re-eval - Medical Decision Making The patient was endorsed to me by Dr. Zaldivar. He did have improvement of his symptoms with meclizine. His head CT was unremarkable. His labs do demonstrate a mild hyperglycemia, but the patient is currently on prednisone. He is able to ambulate with a steady gait. At this time, I do agree with the assessment that this is likely a positional vertigo. The patient will be continued on Zofran and meclizine. He will follow-up with his primary care for reevaluation or return with any worsening symptoms. <Travis Joyner - Last Filed: 06/28/18 08:16> ED Disposition <Travis Joyner - Last Filed: 06/28/18 08:16> <Diony Zaldivar - Last Filed: 07/08/18 07:19> - Plan for ED Patient: Disposition: Home or Assisted Living Chief Complaint: General Illness Diagnosis: Peripheral vertigo, unspecified Instructions: ED Vertigo Unspecified Prescriptions: Ondansetron [Zofran Odt] 4 mg PO Q8H PRN PRN #10 tab PRN Reason: Nausea RX: Meclizine HCl 25 mg PO 4X/DAY PRN PRN #30 tab PRN Reason: Dizziness Referrals: James Rizzo MD [Primary Care Provider] - 3-5 Days if not improving
[2018-06-28 06:43] VITALS: BP 122/88; BP 129/83; BP 135/85; PULSE 75; PULSE 80; PULSE 90
[2018-06-28] MEDS: Meclizine HCl 25 MG Tablet PO (06:43)
[2018-06-28 07:10] LABS: Absolute Lymphocyte Count 2.18 X10^3/ul (0.83-4.51); Absolute Neutrophil Count 7.6 X10^3/uL (2.0-7.7); Basophil# 0.01 X10^3/uL; Basophil% 0.1 % (0-1); Hematocrit 45.8 % (40-54); Hemoglobin 15.2 g/dl (13.0-16.5); Lymphocyte # 2.18 X10^3/ul (4.0); Mean Corp Hgb Conc 33.2 g/gl (32-36); Mean Corpuscular Hgb 27.3 pg (27.0-32.0); Mean Corpuscular Volume 82.2 fL (80-94); Mean Platelet Vol. 9.4 fl (6.2-12.0); Monocyte# 0.58 X10^3/uL; Monocyte% 5.6 % (0-10); Neutrophil % 73.1 % (47-70); POSITIVE COUNT NO; POSITIVE DIFFERENTIAL NO; POSITIVE MORPHOLOGY NO; Platelet Count 305 K/mm3 (150-450); RBC Distribution Width CV 14.1 % (11.6-14.6); RBC Distribution Width SD 42.3 fl (35.1-43.9); Red Blood Count 5.57 M/mm3 (4.6-6.2); White Blood Count 10.4 K/mm3 (4.4-11.0)
[2018-06-28 07:15] LABS: Anion Gap 8 (5-15); BUN 18 mg/dL (7-18); BUN/Creat Ratio 18.6 RATIO (10-20); Calcium,Total 9.3 mg/dL (8.5-10.1); Chloride 100 mmol/L (98-107); Creatinine, Serum 0.97 mg/dL (0.70-1.30); EST Glomerular Filtration Rate 86 mL/min (>60); Est Glom Filt Rate - Afr Amer 104 mL/min (>60); Estimated Creatinine Clearance 89.89 ml/min; Glucose 153 mg/dL (74-106); Potassium 3.9 mmol/L (3.5-5.1); Sodium Level 136 mmol/L (136-145)
[2018-06-28 07:28] VITALS: BP 135/79; PULSE 62; RESP 15; O2SAT 98
== END 2018-06-28 07:29 | disposition home or self-care (01) ==
LOC: ED 06:30
PROVIDERS: Emergency Provider Emergency Medicine; Family Provider Family Medicine; PCP Family Medicine
DX: H81.399 Other peripheral vertigo, unspecified ear (principal); K40.90 Unilateral inguinal hernia, without obstruction or gangrene, not specified as recurrent; Z90.49 Acquired absence of other specified parts of digestive tract; Z79.52 Long term (current) use of systemic steroids; Z79.82 Long term (current) use of aspirin; Z79.899 Other long term (current) drug therapy
CPT/HCPCS: 70450; 80048; 85025; 99284; A4216

== ENCOUNTER 2018-07-22 13:51 | Emergency (ER) | payer BC, SELFPAY ==
[2018-07-22 13:52] VITALS: BP 162/100; PULSE 93; RESP 18; TEMP 36.6; O2SAT 97; BMI 27.9
--- NOTE | 2018-07-22 15:03 | CT_ITS ---
STUDY: CTA NECK WITH CONTRAST REASON FOR EXAM: Male, 53 years old. Head pressure dizziness hypertension RADIATION DOSAGE (If Supplied By Facility): CTDIvol = ( 27.27 ) mGy, DLP = ( 1517.40 ) mGycm TECHNIQUE: CT angiography with multi-detector data acquisition was performed from the aortic arch to the skull base following intravenous administration of 100 ml of Isovue 370 contrast. MIP images were reconstructed from the axial data set. Post-processing of the angiographic images was performed, with multiplanar reformation and 3D reconstruction. Individualized dose optimization techniques were used for this CT. COMPARISON: Carotid ultrasound March 15, 2016 FINDINGS: AORTIC ARCH: There is a bovine origin of the great vessels arising from the aortic arch with a common origin of the brachiocephalic and left common carotid artery. Normal origin of the left subclavian artery. Otherwise normal origins of the brachiocephalic, left common carotid, and left subclavian arteries. RIGHT CAROTID ARTERIES: Normal right common carotid artery (CCA). There is minimal atherosclerotic plaque formation with minimal narrowing of the right carotid bulb. Normal origin of the right internal carotid (ICA) artery without a hemodynamically significant stenosis. Normal visualized cervical portion of the right internal carotid artery. Normal origin of the right external carotid artery (ECA). LEFT CAROTID ARTERIES: Normal left common carotid artery (CCA). Normal left common carotid bulb. Normal origin of the left internal carotid (ICA) artery without a hemodynamically significant stenosis. Normal visualized cervical portion of the left internal carotid artery. Normal origin of the left external carotid artery (ECA). VERTEBRAL ARTERIES: Normal bilateral vertebral arteries. There is degenerative change of the cervical spine. In particular there is C5-C6 large osteophyte causing stenosis of the right neural foramen. There is multilevel spondylosis. There is multilevel facet arthropathy. At C2-C3 there is moderate left neural foramina narrowing secondary to facet arthropathy. CT/CTA Neck W/WO Contrast IMPRESSION: Trace calcification at the right carotid bulb no evidence of stenosis. Significant degenerative change C5-C6 right side and left side C2-C3. Electronically Signed: Mariana Wallis MD at 17:50 EDT Tel , Service support ,
--- NOTE | 2018-07-22 15:03 | CT_ITS ---
STUDY: CTA OF THE BRAIN REASON FOR EXAM: Male, 53 years old. Pressure dizziness RADIATION DOSAGE (If Supplied By Facility): CTDIvol = ( ) mGy, DLP = ( ) mGycm TECHNIQUE: CT angiography was performed with a multi-detector CT scanner. Data acquisition was obtained from the skull base through the vertex following intravenous administration of 100 ml of Isovue-370. MIP images were reconstructed from the axial data set. Post-processing of the angiographic images was performed, with multiplanar reformation and 3D reconstruction. At the time of this study there is also venous contrast. This can limit the study. Individualized dose optimization techniques were used for this CT. COMPARISON: CT head June 28, 2018, April 04, 2017 MRA brain March 14, 2016 FINDINGS: Normal bilateral petrous carotid arteries. Normal right cavernous carotid artery with a normal supraclinoid bifurcation. Normal left cavernous carotid artery with a normal supraclinoid bifurcation. Normal right A1 segments of the anterior cerebral artery. Normal left A1 segments of the anterior cerebral artery. There is a stable mildly distended appearance of the left side anterior communicating artery with a narrow appearance of the area just proximal to the right A2. There is a slight bulbous appearance of the anterior communicating artery which could potentially represent a tiny focal aneurysm versus adjacent tiny vascular structures. Normal bilateral A2 segments of the anterior cerebral arteries. Normal right M1 and M2 segments of the middle cerebral arteries, with a normal M1 bifurcation. Normal left M1 and M2 segments of the middle cerebral arteries, with a normal M1 bifurcation. There is non-visualization of the right posterior communicating artery (PCOM). There is non-visualization of the left posterior communicating artery (PCOM). Normal bilateral vertebral arteries. Normal basilar artery with a normal basilar bifurcation. The visualized bilateral superior cerebellar (SCA) arteries are normal. Normal bilateral P1, P2 and visualized P3 segments of the posterior cerebral arteries. There is no demonstrated aneurysm of the [place]. There is no demonstrated abnormality of the visualized brain. CT/CTA Head W/WO Contrast IMPRESSION: No visualized evidence of stenosis. There is a stable mildly asymmetric appearance of the anterior communicating artery which may represent tiny adjacent vessel takeoff versus a tiny aneurysm not measuring more than 1 mm within the anterior communicating artery. Recommend consideration for follow-up study such as MRI/MRA when appropriate. Otherwise normal appearing cerebral angiogram. Electronically Signed: Mariana Wallis MD at 17:46 EDT Tel , Service support ,
--- NOTE | 2018-07-22 15:09 | ED.DCSUM_ITS ---
- ER Visit Summary Date of Service: 07/22/18 Chief Complaint: Headache History of Present Illness: The patient is a 53 M with an intermittent headache for the past 3 weeks. Pain is in the back of his head and radiates in a bandlike pattern around his head. Worse with standing. Better with sitting down and laying down. He describes it as a pressure. Associated with some intermittent flushing. He had some syncope when this started and was seen in the emergency department. He had a CT as well as lab work. He was sent for outpatient follow-up. He has been on prednisone and antibiotics for UTI recently. He had MRIs about a week ago at the [facility] and there was nothing significant to explain his pain. He was referred for outpatient CTA of his head and neck, but he has not had this done yet. He is not currently taking any medications for this. History of hypertension, hyperlipidemia, anxiety, BPH, back pain, insomnia, IBS, and ulcerative colitis. No other associated symptoms. Physical Examination: Blood pressure 162/100. Otherwise vitals unremarkable. Afebrile. Alert and oriented. Sitting comfortably. In no acute distress. Heart regular rate and rhythm. Lungs clear. Abdomen soft and nontender. Cranial nerves grossly intact. Normal strength and sensation. Normal cerebellar testing. NIH stroke scale is 0. Normal affect. Normal skin. Test Results: Laboratory studies including ESR pending. CTA is pending. Emergency Department Course and Treatment: Patient treated with fluids, Benadryl, and Compazine while awaiting results. Patient had an adverse reaction to the Compazine. He felt restless. This seemed to resolve over time. On reevaluation, he was pain-free. No new or worsening symptoms. His blood work was all unremarkable. ESR was 10. Chest x-ray showed no acute abnormalities. CTA head and neck showed asymmetry and has anterior communicating artery which was possibly a vascular takeoff or a tiny aneurysm less than 1 mm. Radiology recommended MRI/MRA as needed. CTA neck showed right carotid bulb calcification and degenerative spinal changes but nothing else abnormal. I initially contacted neurosurgery at [facility]. The doctor there said he did not treat vascular disease. He referred me to the [facility]. I spoke with Dr. Martinez (sp?). He advised that it is appropriate for the patient to follow-up as an outpatient. Patient does not need further imaging or transfer tonight. He should return right away if he has new or worsening issues, otherwise the neurosurgery office will reach out to him on Tuesday for follow-up. They will likely perform a dedicated angiogram. Patient voiced understanding and agreement. Will follow-up as discussed. Treatment Plan: As above Disposition: Discharge Impression: 1. Headache disorder This note was generated with [employer] dictation software. It may contain incorrect words, spelling, and punctuation that were not noted in review of the chart prior to signing ED Disposition - Plan for ED Patient: Chief Complaint: General Illness Referrals: James Rizzo MD [Primary Care Provider] -
[2018-07-22] MEDS: DiphenhydrAMINE 50 MG/ML Syringe IV (15:19)
[2018-07-22] MEDS: proCHLORPERazine 10 MG/2 ML Vial IV (15:19)
[2018-07-22] MEDS: 0.9% Normal Saline 1,000 ML 1000 ML IV (15:19)
[2018-07-22 15:31] LABS: Absolute Lymphocyte Count 1.44 X10^3/ul (0.83-4.51); Absolute Neutrophil Count 2.8 X10^3/uL (2.0-7.7); Basophil# 0.02 X10^3/uL; Basophil% 0.4 % (0-1); Eosinophil# 0.03 X10^3/uL; Eosinophils% 0.6 % (0-5); Hematocrit 45.9 % (40-54); Hemoglobin 15.1 g/dl (13.0-16.5); Lymphocyte # 1.44 X10^3/ul (4.0); Lymphocyte % 30.6 % (19-41); Mean Corp Hgb Conc 32.9 g/gl (32-36); Mean Corpuscular Hgb 27.3 pg (27.0-32.0); Mean Platelet Vol. 9.6 fl (6.2-12.0); Monocyte# 0.39 X10^3/uL; Monocyte% 8.3 % (0-10); Neutrophil # 2.81 X10^3/uL (2.7-7.7); Neutrophil % 59.9 % (47-70); Platelet Count 263 K/mm3 (150-450); RBC Distribution Width CV 14.3 % (11.6-14.6); RBC Distribution Width SD 43.1 fl (35.1-43.9); Red Blood Count 5.53 M/mm3 (4.6-6.2); White Blood Count 4.7 K/mm3 (4.4-11.0)
[2018-07-22 15:33] LABS: POSITIVE COUNT NO; POSITIVE DIFFERENTIAL NO; POSITIVE MORPHOLOGY NO
[2018-07-22 15:46] LABS: Erythrocyte Sedimentation Rate 10 mm/hr (0-20)
[2018-07-22 15:54] LABS: Anion Gap 6 (5-15); BUN 14 mg/dL (7-18); BUN/Creat Ratio 17.4 RATIO (10-20); Calcium,Total 9.7 mg/dL (8.5-10.1); Chloride 104 mmol/L (98-107); EST Glomerular Filtration Rate 106 mL/min (>60); Est Glom Filt Rate - Afr Amer 129 mL/min (>60); Estimated Creatinine Clearance 108.99 ml/min; Glucose 98 mg/dL (74-106); Potassium 3.4 mmol/L (3.5-5.1); Sodium Level 138 mmol/L (136-145)
[2018-07-22 16:12] LABS: International Normalized Ratio 0.9; Prothrombin Time (Protime)PT. 12.6 SECONDS (11.7-14.9)
[2018-07-22 16:13] LABS: Partial Thromboplast Time 31.4 Seconds (24.1-36.2)
--- NOTE | 2018-07-22 16:21 | ED.RN ---
PT BECAME ANXIOUS AFTER COMPAZINE ADMINISTRATION
[2018-07-22 16:23] VITALS: PULSE 99; RESP 24; O2SAT 100
--- NOTE | 2018-07-22 16:40 | RAD_ITS ---
STUDY: X-RAY CHEST REASON FOR EXAM: Male, 53 years old. Generalized illness, headache, syncope TECHNIQUE: PA and lateral views of the chest. COMPARISON: Prior study of 04/04/2017 FINDINGS: The lungs are clear and expanded. There is no demonstrated pleural abnormality. Normal size heart. Normal mediastinum and emir. Normal visualized pulmonary arteries. Normal visualized aortic arch and descending thoracic aorta. Normal visualized thoracic spine. Normal visualized ribs, clavicles, and shoulders. There is no demonstrated abnormality of the visualized soft tissue structures of the upper abdomen. RAD/Chest PA and Lateral IMPRESSION: Degenerative changes of the thoracic spine. No acute cardiopulmonary disease process seen. Electronically Signed: Sai Corcoran MD at 17:06 EDT , Service support ,
[2018-07-22 18:15] VITALS: BP 132/70; PULSE 88; RESP 14; O2SAT 100
--- NOTE | 2018-07-22 18:23 | ED.RN ---
called [facility] transfer line. had to leave a message for call back
--- NOTE | 2018-07-22 19:54 | ED.DEP ---
ED Disposition - Plan for ED Patient: Chief Complaint: General Illness Instructions: ED Cephalgia Unspecified Additional Instructions: Follow up with Dr. Sosa's office on Tuesday. They will call.
[2018-07-22 20:08] VITALS: BP 130/88; PULSE 86; RESP 16; O2SAT 100
== END 2018-07-22 20:09 | disposition home or self-care (01) ==
LOC: ED 15:06
PROVIDERS: Emergency Provider Emergency Medicine; Family Provider Family Medicine; PCP Family Medicine
DX: R51 Headache (principal); H53.8 Other visual disturbances; M54.2 Cervicalgia; I65.21 Occlusion and stenosis of right carotid artery; I10 Essential (primary) hypertension; E78.00 Pure hypercholesterolemia, unspecified; F41.9 Anxiety disorder, unspecified; N40.0 Benign prostatic hyperplasia without lower urinary tract symptoms; M54.9 Dorsalgia, unspecified; G47.00 Insomnia, unspecified; K51.90 Ulcerative colitis, unspecified, without complications; Z87.440 Personal history of urinary (tract) infections; Z79.82 Long term (current) use of aspirin; Z79.899 Other long term (current) drug therapy
CPT/HCPCS: 70496; 70498; 71046; 80048; 85025; 85610; 85652; 85730; 96361; 96374; 96375; 99283; J7030; Q9967; A4216

== ENCOUNTER → 2018-07-25 13:50 | Outpatient (CLI) | payer BC, SELFPAY | PROVIDERS: Family Provider Family Medicine; PCP Family Medicine; Referring Provider Family Medicine; Visit Provider Family Medicine | DX: R55 Syncope and collapse (principal); I49.9 Cardiac arrhythmia, unspecified | CPT/HCPCS: 93225; 93226 ==

== ENCOUNTER 2018-07-27 13:38 | Observation (INO) | payer BC, SELFPAY ==
[2018-07-27] VITALS (9 sets, daily range): BP systolic 112–155; BP diastolic 69–91; PULSE 74–124; RESP 14–16; TEMP 35.9–37; O2SAT 95–100; BMI 27.9; BMI 28.0; BMI 27.6
--- NOTE | 2018-07-27 13:50 | RAD_ITS ---
STUDY: X-RAY CHEST REASON FOR EXAM: Male, 53 years old. Chest pain and shortness of breath. TECHNIQUE: Single AP portable view of the chest. COMPARISON: Comparison is made with prior study dated July 22, 2018. FINDINGS: EKG electrodes are seen. Stable elevation of the right hemidiaphragm. The lungs are clear. There is no demonstrated pleural abnormality. Normal size heart. Normal mediastinum and emir. Normal visualized pulmonary arteries. Normal visualized aortic arch and descending thoracic aorta. There are diffuse degenerative changes of the visualized thoracic spine. Normal visualized ribs, clavicles, and shoulders. There is no demonstrated abnormality of the visualized soft tissue structures of the upper abdomen. RAD/Chest 1 View (Portable) IMPRESSION: No acute abnormality is seen. Electronically Signed: Piyush Jernigan MD at 14:25 EDT Tel [phone], Service support ,
--- NOTE | 2018-07-27 13:50 | EKG12_ITS ---
Test Reason : PALPITATIONS Blood Pressure : / mmHG Vent. Rate : 126 BPM Atrial Rate : 126 BPM P-R Int : 112 ms QRS Dur : 096 ms QT Int : 428 ms P-R-T Axes : 040 059 019 degrees QTc Int : 619 ms Sinus tachycardia with Premature ventricular complexes or Fusion complexes Cannot rule out Inferior infarct , age undetermined ST & T wave abnormality, consider lateral ischemia Abnormal ECG Confirmed by GRUPO WATERS, DIANA ([id number]), material expeditor IDALIA CARTWRIGHT ([id number]) on 08/02/2018 2:28:36 PM Referred By: James Rizzo Confirmed By:DIANA LOMBARDO MD
[2018-07-27] MEDS: 0.9% Normal Saline 1,000 ML 1000 ML IV (13:59)
[2018-07-27] MEDS: Aspirin 81 MG TAB.CHEW 324 MG PO (13:59)
--- NOTE | 2018-07-27 14:24 | ED.DCSUM_ITS ---
- ER Visit Summary Date of Service: 07/27/18 Chief Complaint: Palpitations History of Present Illness: The patient is a 53 M who presents with palpitations. He states the symptoms started yesterday. He feels like his heart is racing every time he stands up. When he sits down it gets better. He also has heaviness in the middle of his chest. It started last night and was intermittent but now it has been all day today. His legs feel weak as well. Denies any recent illnesses. Patient has been in the hospital twice in June. He was here for generalized weakness and lightheadedness. He also had a syncopal episode. He had negative head CT, head CTA, neck CTA and chest x-ray. He currently has a Holter monitor from his PCP. He states he has been eating and drinking well. Physical Examination: Vital signs reviewed. HEENT exam unremarkable. Heart is tachycardic and regular rhythm without murmurs. Lungs are clear to auscultation. Abdomen is soft and nontender. Extremities reveal no edema. Skin exam normal. Neurologic exam normal. Test Results: EKG is sinus tachycardia with a rate of 126. Nonspecific ST and T wave changes noted. Labs are normal. TSH normal Emergency Department Course and Treatment: Patient was given aspirin and normal saline. He was still having some discomfort in his back. He has been worked up for syncope with CAT scans but he has not had a stress test. I feel that we should admit him to the hospital to have this done. I spoke with the hospitalist for admission. Treatment Plan: [] Disposition: Admit Impression: Chest pain, palpitations This note was generated with [employer] dictation software. It may contain incorrect words, spelling, and punctuation that were not noted in review of the chart prior to signing ED Disposition - Plan for ED Patient: Chief Complaint: Palpitations Referrals: James Rizzo MD [Primary Care Provider] -
[2018-07-27 14:33] LABS: Absolute Lymphocyte Count 1.79 X10^3/ul (0.83-4.51); Basophil# 0.01 X10^3/uL; Basophil% 0.2 % (0-1); Eosinophil# 0.03 X10^3/uL; Eosinophils% 0.5 % (0-5); Hematocrit 47.3 % (40-54); Hemoglobin 15.9 g/dl (13.0-16.5); Lymphocyte # 1.79 X10^3/ul (4.0); Lymphocyte % 29.4 % (19-41); Mean Corp Hgb Conc 33.6 g/gl (32-36); Mean Corpuscular Volume 83.3 fL (80-94); Mean Platelet Vol. 9.4 fl (6.2-12.0); Monocyte% 4.9 % (0-10); Neutrophil # 3.95 X10^3/uL (2.7-7.7); Neutrophil % 64.8 % (47-70); POSITIVE COUNT NO; POSITIVE DIFFERENTIAL NO; POSITIVE MORPHOLOGY NO; Platelet Count 298 K/mm3 (150-450); RBC Distribution Width CV 14.2 % (11.6-14.6); RBC Distribution Width SD 42.8 fl (35.1-43.9); Red Blood Count 5.68 M/mm3 (4.6-6.2); White Blood Count 6.1 K/mm3 (4.4-11.0)
[2018-07-27 14:53] LABS: Anion Gap 7 (5-15); BUN 11 mg/dL (7-18); BUN/Creat Ratio 12.1 RATIO (10-20); Calcium,Total 10.3 mg/dL (8.5-10.1); Chloride 99 mmol/L (98-107); Creatinine, Serum 0.91 mg/dL (0.70-1.30); EST Glomerular Filtration Rate 92 mL/min (>60); Est Glom Filt Rate - Afr Amer 112 mL/min (>60); Estimated Creatinine Clearance 95.82 ml/min; Glucose 154 mg/dL (74-106); Potassium 3.5 mmol/L (3.5-5.1); Sodium Level 136 mmol/L (136-145); Thyroid Stim Hormone (TSH) 1.32 uIU/mL (0.358-3.74)
--- NOTE | 2018-07-27 16:21 | EKG12_ITS ---
Test Reason : PCU CP Blood Pressure : / mmHG Vent. Rate : 072 BPM Atrial Rate : 072 BPM P-R Int : 150 ms QRS Dur : 094 ms QT Int : 382 ms P-R-T Axes : 042 037 046 degrees QTc Int : 418 ms Normal sinus rhythm Nonspecific T wave abnormality Abnormal ECG When compared with ECG of 23-JUN-2018 22:50, No significant change was found Confirmed by GRUPO WATERS, DIANA ([id number]), food expeditor IDALIA CARTWRIGHT ([id number]) on 08/03/2018 4:11:13 PM Referred By: James Rizzo Confirmed By:DIANA LOMBARDO MD
--- NOTE | 2018-07-27 17:46 | PCM.HP.STD ---
<Drew Ashraf - Last Filed: 07/27/18 17:46> Problem List (1) Chest pain Status: Acute (2) DDD (degenerative disc disease) Status: Chronic (3) Spinal stenosis Status: Chronic (4) Prediabetes Status: Chronic (5) Anxiety Status: Chronic (6) Benign essential HTN Status: Chronic (7) Chronic low back pain Status: Chronic (8) Enlarged prostate Status: Chronic (9) HLD (hyperlipidemia) Status: Chronic (10) IBS (irritable bowel syndrome) Status: Chronic (11) Ulcerative colitis Status: Chronic History of Present Illness Date of Admission: 07/27/18 Chief Complaint: chest pain The patient is a 53 year old M with a history of prediabetes, hyperlipidemia, enlarged prostate, GERD, anxiety and depression, chronic back pain 2/2 ddd and lumbar stenosis who presents to the ER with c/o chest pain this AM that occurred while sitting in a chair. He states that it radiates to his back between his shoulder blades. He states it occurs while sitting. When standing his heart starts racing, and when he sits back down it feels like it is fluttering. He describes the chest pain as a tightness and is associated with LH and dizziness, mild SOB, mild nausea, and some sweating. He has no hx CAD however his dad had CAD starting in his 40s. He does not smoke. He also c/o frequent urination and increased thirst. [] Past Medical History Past Medical History (Chronic Problems): Chronic Problems DDD (degenerative disc disease) (Chronic) Spinal stenosis (Chronic) Prediabetes (Chronic) Anxiety (Chronic) Enlarged prostate (Chronic) Chronic low back pain (Chronic) Insomnia (Chronic) Poor dentition (Chronic) IBS (irritable bowel syndrome) (Chronic) HLD (hyperlipidemia) (Chronic) Ulcerative colitis (Chronic) Benign essential HTN (Chronic) Allergies amoxicillin Allergy (Verified 07/27/18 13:42) Rash tramadol Allergy (Verified 07/27/18 13:42) Other diphenhydramine [From Benadryl] Adverse Reaction (Verified 07/27/18 13:42) Other ANXIETY, AGITATION gabapentin Adverse Reaction (Verified 07/27/18 13:42) Other prochlorperazine [From Compazine] Adverse Reaction (Verified 07/27/18 13:42) Other ANXIETY, AGITATION NARCOTICS Adverse Reaction (Uncoded 07/27/18 13:42) Other ANXIETY, AGITATION Home Medications: Ambulatory Orders Medication Instructions Recorded Omeprazole Magnesium [Prilosec Otc] 20 mg PO DAILY 04/04/17 Atorvastatin Calcium 20 mg PO DAILY 12/03/17 Lisinopril/Hydrochlorothiazide 1 tablet PO DAILY 12/03/17 [Zestoretic 20/12.5 Tablet] Aspirin E.C. [Ecotrin] 81 mg PO DAILY 07/27/18 Surgical History: cholecystectomy, - - Multiple colonoscopies Smoking Status: Never smoker Tobacco Use: Non-smoker Alcohol: None Drugs: None - *Family History Maternal History Items: Cancer - mother with bladder cancer, Diabetes, Hypertension Paternal History Items: Cancer - father with prostate CA, Diabetes, Heart Disease - father had CABG at 44 YOA, Hypertension, - - father has dementia Review of Systems Constitutional: Denies: Chills, Fever, Weight Change HEENT: Denies: Head Aches, Sinus Congestion, Sinus Drainage Cardiovascular: Reports: Chest Tightness, Light Headedness, Palpitations. Denies: Chest Pain Respiratory: Reports: Shortness of Breath. Denies: Cough, Shortness of breath at rest, Sputum production Gastrointestinal: Denies: Abdominal Pain, Nausea, Vomiting Genitourinary: Denies: Dysuria Musculoskeletal: Denies: Joint Pain, Joint Tenderness Skin: Denies: Rash, Wounds Neurological: Denies: Numbness, Tingling, Focal weakness Psychiatric: Denies: Anxiety, Depression, Homicidal Ideations, Suicidal Ideations Hematologic/ Lymphatic: Denies: Easy Bruising, Easy Bleeding VTE Information - Inpt Only VTE Present on Admission: No VTE Pharm Prophylaxis ordered?: Yes Patient Problems: Active and Suspected Problems Chest pain (Acute) - Physical Exam General: Alert, Oriented x3, Cooperative HEENT: Atraumatic, PERRLA, EOMI, Normocephalic Neck: Supple, No JVD, Negative Carotid Bruits Lungs: Clear to auscultation, Normal air movement Cardiovascular: Regular rate, No murmurs Abdomen: Bowel Sounds Present, Soft, Non Tender Extremities: No edema, Capillary Refill Less than 3 Seconds Skin: No rashes, No breakdown Musculoskeletal: No Tenderness to Palpation of Joints or Extremities Neurological: Cranial nerves II-XII grossly intact Psych/Mental Status: Normal Affect, Appropriate Vital Signs Temp Pulse Resp BP Pulse Ox 98.4 F 82 16 112/78 100 07/27/18 16:18 07/27/18 16:18 07/27/18 16:18 07/27/18 16:18 07/27/18 16:18 Oxygen Flow Rate (L/min) 2 Oxygen Delivery Method Room Air Weight: 192 lb 10.944 oz Body Mass Index (BMI) 27.6 Finger Stick Blood Glucose 135 Laboratory Tests Past 24 Hrs 07/27/18 07/27/18 14:25 14:25 WBC 6.1 RBC 5.68 Hgb 15.9 Hct 47.3 MCV 83.3 MCH 28.0 MCHC 33.6 RDW 14.2 RDW Differential 42.8 Plt Count 298 MPV 9.4 Immature Gran % (Auto) 0.200 Neut % (Auto) 64.8 Lymph % (Auto) 29.4 [place] % (Auto) 4.9 Eos % (Auto) 0.5 Baso % (Auto) 0.2 Absolute Neuts (auto) 4.0 Absolute Lymphs (auto) 1.79 Total Counted Not Reportable Sodium 136 Potassium 3.5 Chloride 99 Carbon Dioxide 30.0 Anion Gap 7 BUN 11 Creatinine 0.91 Estim Creat Clear Calc 95.82 Est GFR (MDRD) Af Amer 112 Est GFR (MDRD) Non-Af 92 BUN/Creatinine Ratio 12.1 Glucose 154 H Calcium 10.3 H Troponin I < 0.015 TSH 1.32 Assessment/Plan All Active Problems Chest pain (Acute) Dysphagia (Resolved) Enlarged tonsils (Resolved) History of Baltazar's palsy (Resolved) 1. Chest pain and palpitations - Risk Factors: + fm hx cad, + prediabetic, + htn, + hld. EKG sinus tachy, neg trop. TSH normal. CXR neg. Cycle enzymes stress test in AM. 2. Prediabetes - increased polyuria and dypsia - recheck a1c last 6.2 in February 2018. 3. GERD - ppi 4. BPH - may also contribute to his worsening polyuria and dypsia. + fm hx prostate cancer. Advised follow up with PCP. 5. HLD - statin 6. HTN - on óscar and hctz. stable DVT ppx: lovenox This patient was seen by Drew Ashraf PA-C under the supervision of Doctor Charles. <Mu Soto - Sulaiman Filed: 07/27/18 20:23> History of Present Illness The patient is a 53 year old M [] Past Medical History Allergies amoxicillin Allergy (Verified 07/27/18 13:42) Rash tramadol Allergy (Verified 07/27/18 13:42) Other diphenhydramine [From Benadryl] Adverse Reaction (Verified 07/27/18 13:42) Other ANXIETY, AGITATION gabapentin Adverse Reaction (Verified 07/27/18 13:42) Other prochlorperazine [From Compazine] Adverse Reaction (Verified 07/27/18 13:42) Other ANXIETY, AGITATION NARCOTICS Adverse Reaction (Uncoded 07/27/18 13:42) Other ANXIETY, AGITATION - Physical Exam Vital Signs Temp Pulse Resp BP Pulse Ox 98.4 F 98 16 112/78 100 07/27/18 16:18 07/27/18 19:06 07/27/18 16:18 07/27/18 16:18 07/27/18 16:18 Oxygen Flow Rate (L/min) 2 Oxygen Delivery Method Room Air Weight: 192 lb 10.944 oz Body Mass Index (BMI) 27.6 Finger Stick Blood Glucose 135 Intake and Output for Last 24 Hours 07/25/18 07/26/18 07/27/18 23:59 23:59 23:59 Intake Total 240 / 240 Balance 240 / 240 Laboratory Tests Past 24 Hrs 07/27/18 07/27/18 07/27/18 14:25 14:25 17:44 WBC 6.1 RBC 5.68 Hgb 15.9 Hct 47.3 MCV 83.3 MCH 28.0 MCHC 33.6 RDW 14.2 RDW Differential 42.8 Plt Count 298 MPV 9.4 Immature Gran % (Auto) 0.200 Neut % (Auto) 64.8 Lymph % (Auto) 29.4 [place] % (Auto) 4.9 Eos % (Auto) 0.5 Baso % (Auto) 0.2 Absolute Neuts (auto) 4.0 Absolute Lymphs (auto) 1.79 Total Counted Not Reportable Sodium 136 Potassium 3.5 Chloride 99 Carbon Dioxide 30.0 Anion Gap 7 BUN 11 Creatinine 0.91 Estim Creat Clear Calc 95.82 Est GFR (MDRD) Af Amer 112 Est GFR (MDRD) Non-Af 92 BUN/Creatinine Ratio 12.1 Glucose 154 H Calcium 10.3 H Troponin I < 0.015 < 0.015 TSH 1.32 Code Visit Addendum: Dr. Soto I personally examined the patient and reviewed the chart. I agree with the above. 53-year-old gentleman with chronic low back pain, hyperlipidemia, IBS, ulcerative colitis, anxiety, presenting with chest pain. He states that even he has been having chest pain on and off for the last couple of weeks but it has not been bad until the last couple of days. He does not have the chest pain with activity, he usually has chest pain and chest pressure with palpitation when he sits down after an activity. He recently completed a Holter monitor for episodes of syncope and lightheadedness that has not been read yet. He hopes that there is some evidence of on his Holter monitor because he said he was very symptomatic during the 2 days that he was wearing it. He has had 2 troponins thus far which have both been normal and his EKG was sinus tach. We will do a nuclear stress test in the morning since I doubt he would be able to complete an exercise stress test given the level of his back pain. OBSV E&M: 12026 Initial observation care L3
[2018-07-28 02:22] VITALS: BP 97/58; PULSE 84; RESP 16; TEMP 36.9; O2SAT 95
[2018-07-28 03:16] VITALS: PULSE 100
--- NOTE | 2018-07-28 05:55 | EKG12_ITS ---
Test Reason : AM EKG Blood Pressure : / mmHG Vent. Rate : 080 BPM Atrial Rate : 080 BPM P-R Int : 166 ms QRS Dur : 096 ms QT Int : 378 ms P-R-T Axes : 047 057 043 degrees QTc Int : 435 ms Normal sinus rhythm Nonspecific T wave abnormality Abnormal ECG When compared with ECG of 27-JUL-2018 16:47, MANUAL COMPARISON REQUIRED, DATA IS UNCONFIRMED Confirmed by GRUPO WATERS, DIANA ([id number]), editor house organ IDALIA CARTWRIGHT ([id number]) on 08/03/2018 4:10:30 PM Referred By: James Rizzo Confirmed By:DIANA LOMBARDO MD
[2018-07-28 06:02] LABS: Absolute Lymphocyte Count 2.08 X10^3/ul (0.83-4.51); Basophil# 0.02 X10^3/uL; Basophil% 0.3 % (0-1); Eosinophil# 0.05 X10^3/uL; Eosinophils% 0.7 % (0-5); Hematocrit 42.9 % (40-54); Hemoglobin 14.3 g/dl (13.0-16.5); Lymphocyte # 2.08 X10^3/ul (4.0); Lymphocyte % 30.4 % (19-41); Mean Corp Hgb Conc 33.3 g/gl (32-36); Mean Corpuscular Hgb 27.6 pg (27.0-32.0); Mean Corpuscular Volume 82.7 fL (80-94); Mean Platelet Vol. 9.6 fl (6.2-12.0); Monocyte# 0.66 X10^3/uL; Monocyte% 9.6 % (0-10); Neutrophil # 4.03 X10^3/uL (2.7-7.7); Neutrophil % 58.9 % (47-70); Platelet Count 296 K/mm3 (150-450); RBC Distribution Width CV 14.2 % (11.6-14.6); RBC Distribution Width SD 42.8 fl (35.1-43.9); Red Blood Count 5.19 M/mm3 (4.6-6.2); White Blood Count 6.9 K/mm3 (4.4-11.0)
[2018-07-28 06:04] LABS: POSITIVE COUNT NO; POSITIVE DIFFERENTIAL NO; POSITIVE MORPHOLOGY NO; Prothrombin Time (Protime)PT. 13.4 SECONDS (11.7-14.9)
[2018-07-28 06:05] LABS: Partial Thromboplast Time 33.8 Seconds (24.1-36.2)
[2018-07-28 06:26] LABS: Anion Gap 9 (5-15); BUN 16 mg/dL (7-18); BUN/Creat Ratio 20.5 RATIO (10-20); Calcium,Total 9.4 mg/dL (8.5-10.1); Chloride 102 mmol/L (98-107); Creatinine, Serum 0.78 mg/dL (0.70-1.30); EST Glomerular Filtration Rate 110 mL/min (>60); Est Glom Filt Rate - Afr Amer 133 mL/min (>60); Estimated Creatinine Clearance 111.79 ml/min; Glucose 100 mg/dL (74-106); Potassium 3.2 mmol/L (3.5-5.1); Sodium Level 140 mmol/L (136-145)
[2018-07-28 06:34] VITALS: BP 112/79; PULSE 75; RESP 20; TEMP 36.6; O2SAT 95
[2018-07-28 07:15] VITALS: PULSE 86
[2018-07-28 10:03] LABS: Hemoglobin A1c 6.6 % (4.2-6.3)
--- NOTE | 2018-07-28 10:42 | STRESSREP_ITS ---
Stress Test Report Pharmacologic myocardial perfusion stress test. 53-year-old man with a history of chest pain. Stress protocol: Resting EKG demonstrates normal sinus rhythm with a rate of [address]-T wave changes noted. Resting blood pressure 142/84 mmHg. 0.4 mg of regadenoson was infused per usual protocol followed by rapid intravenous saline flush injection continuous EKG monitoring was performed. The patient maintained sinus rhythm throughout the recording with mildly downsloping ST depression noted in the inferior lateral leads. The above did not necessarily meet the criteria for ischemia. The resting blood pressure 142/84 with a final blood pressure of 128/76 mmHg. Myocardial perfusion protocol. 11.8 mCi of technetium 99m sestamibi was injected at rest. 0.4 mg of regadenoson was infused per usual protocol. At peak infusion 33.5 mCi of technetium 99m sestamibi was injected stress images were obtained stress and re st images were reconstructed and compared in the short axis vertical long and horizontal long axis. Gated images were also obtained per Perfusion SPECT analysis: Review of the stress images demonstrate normal uptake of tracer noted in all areas of the myocardium. There is significant GI uptake noted on the stress images. The resting images demonstrate a similar patent. No obvious areas of reversibility are noted to suggest ischemia. Gated SPECT analysis: The gated ejection fraction is noted to be 78%. Conclusion: Normal pharmacologic myocardial perfusion stress test. Preserved ejection fraction.
--- NOTE | 2018-07-28 10:58 | DCINST_ITS ---
- Discharge Diagnoses Current Active Problems: Current Active and Chronic Problems Chest pain (Acute) DDD (degenerative disc disease) (Chronic) Spinal stenosis (Chronic) Prediabetes (Chronic) You will use the following diet at home:: Calorie/Carbohydrate Controlled (specify 1200, 1400, etc) - 1800 yosvany/day, Cardiac Your food should be the consistency of: Regular Your liquids should be the consistency of: Regular/Thin Discharge Activity: Return to Normal Activity Allergies/Adverse Reactions: Allergies amoxicillin Allergy (Verified 07/27/18 13:42) Rash tramadol Allergy (Verified 07/27/18 13:42) Other diphenhydramine [From Benadryl] Adverse Reaction (Verified 07/27/18 13:42) Other ANXIETY, AGITATION gabapentin Adverse Reaction (Verified 07/27/18 13:42) Other prochlorperazine [From Compazine] Adverse Reaction (Verified 07/27/18 13:42) Other ANXIETY, AGITATION NARCOTICS Adverse Reaction (Uncoded 07/27/18 13:42) Other ANXIETY, AGITATION Medications to take at Discharge Omeprazole Magnesium [Prilosec Otc] 20 mg PO DAILY 04/04/17 Atorvastatin Calcium 20 mg PO DAILY 12/03/17 Lisinopril/Hydrochlorothiazide [Zestoretic 20/12.5 Tablet] 1 tablet PO DAILY 12/03/17 Aspirin E.C. [Ecotrin] 81 mg PO DAILY 07/27/18 Metformin HCl 500 mg PO DAILY #30 tablet 07/28/18 The following prescriptions were given: Metformin HCl 500 mg PO DAILY #30 tablet Primary Care Physician: James Rizzo MD [Primary Care Provider] - Please follow up with your Primary Care Physician in: 1 week Test Results: Test results from this visit will be discussed in further detail at your follow- up appointment, if applicable. Proposed Discharge Date: 07/28/18
--- NOTE | 2018-07-28 13:54 | PCM.DC.SUM ---
<Drew Ashraf - Last Filed: 07/28/18 13:54> Discharge Date and Diagnosis Date of Admission: 07/27/18 Date of Discharge: 07/28/18 - Primary Discharge Diagnosis Chest pain - musculoskeletal DMt2 Anxiety Chronic pain - DDD / Spinal Stenosis BPH HLD HTN - Secondary Discharge Diagnosis Chronic Problems DDD (degenerative disc disease) (Chronic) Spinal stenosis (Chronic) Prediabetes (Chronic) Anxiety (Chronic) Enlarged prostate (Chronic) Chronic low back pain (Chronic) Insomnia (Chronic) Poor dentition (Chronic) IBS (irritable bowel syndrome) (Chronic) HLD (hyperlipidemia) (Chronic) Ulcerative colitis (Chronic) Benign essential HTN (Chronic) Hospital Course and Treatment Imaging Results: RAD/Chest 1 View (Portable) IMPRESSION: No acute abnormality is seen. Operations: None Procedures: None Summary of Care Provided: Hospital course: The patient is a 53 year old M with a pmhx of htn, chronic pain 2/2 DDD and spinal stenosis, prediabetes, HLD, GERD, enlarged prostate, IBS, who presented to the ER with c/o chest pain described as midsternal radiating in between his shoulder blades occurring while sitting, associated with racing and palpitations, mild SOB, and some sweating. He came to the ER and had negative EKG, troponin, and CXR. He was admitted to the PCU on tele. Troponin was negative x3. TSH was normal. This increased to 6.6 He had no events on tele. He had a negative stress test the following morning. Orthostatic vitals were negative. He had no further chest pain. His chest pain was felt to be musculoskeletal possibly related to his chronic back issues, or 2/2 GERD. He was discharged home in stable condition. He will need to follow up with his pcp in 1 week. As he complained of increasing polyuria and polydispia with a hx of prediabetes and its risk associated with cardiac disease, an a1c was checked. Diabetic education was provided. He was started on low dose metformin and advised to discuss this with his PCP. This patient was seen by Drew Ashraf PA-C under the supervision of Doctor Anne. [] - Physical Exam General: Alert, Oriented x3, Cooperative HEENT: Atraumatic, PERRLA, EOMI, Normocephalic Neck: Supple, No JVD, Negative Carotid Bruits Lungs: Clear to auscultation, Normal air movement Cardiovascular: Regular rate, No murmurs Abdomen: Bowel Sounds Present, Soft, Non Tender Extremities: No edema, Capillary Refill Less than 3 Seconds Skin: No rashes, No breakdown Musculoskeletal: No Tenderness to Palpation of Joints or Extremities Neurological: Cranial nerves II-XII grossly intact Psych/Mental Status: Normal Affect, Appropriate, Alert and oriented to time, place, person, mood and affect Vital Signs Temp Pulse Resp BP Pulse Ox 98 F 86 20 H 112/79 95 07/28/18 06:34 07/28/18 07:15 07/28/18 06:34 07/28/18 06:34 07/28/18 06:34 Oxygen Flow Rate (L/min) 2 Oxygen Delivery Method Room Air Weight: 192 lb 10.944 oz Body Mass Index (BMI) 27.6 Finger Stick Blood Glucose 135 Intake and Output for Last 24 Hours 07/26/18 07/27/18 07/28/18 23:59 23:59 23:59 Intake Total 440 / 440 Balance 440 / 440 Laboratory Tests Past 24 Hrs 07/27/18 07/27/18 07/27/18 14:25 14:25 17:44 WBC 6.1 RBC 5.68 Hgb 15.9 Hct 47.3 MCV 83.3 MCH 28.0 MCHC 33.6 RDW 14.2 RDW Differential 42.8 Plt Count 298 MPV 9.4 Immature Gran % (Auto) 0.200 Neut % (Auto) 64.8 Lymph % (Auto) 29.4 [place] % (Auto) 4.9 Eos % (Auto) 0.5 Baso % (Auto) 0.2 Absolute Neuts (auto) 4.0 Absolute Lymphs (auto) 1.79 Total Counted Not Reportable PT INR APTT Sodium 136 Potassium 3.5 Chloride 99 Carbon Dioxide 30.0 Anion Gap 7 BUN 11 Creatinine 0.91 Estim Creat Clear Calc 95.82 Est GFR (MDRD) Af Amer 112 Est GFR (MDRD) Non-Af 92 BUN/Creatinine Ratio 12.1 Glucose 154 H Hemoglobin A1c Calcium 10.3 H Troponin I < 0.015 < 0.015 TSH 1.32 07/27/18 07/28/18 07/28/18 20:34 05:30 05:30 WBC 6.9 RBC 5.19 Hgb 14.3 Hct 42.9 MCV 82.7 MCH 27.6 MCHC 33.3 RDW 14.2 RDW Differential 42.8 Plt Count 296 MPV 9.6 Immature Gran % (Auto) 0.100 Neut % (Auto) 58.9 Lymph % (Auto) 30.4 [place] % (Auto) 9.6 Eos % (Auto) 0.7 Baso % (Auto) 0.3 Absolute Neuts (auto) 4.0 Absolute Lymphs (auto) 2.08 Total Counted Not Reportable PT INR APTT Sodium 140 Potassium 3.2 L Chloride 102 Carbon Dioxide 29.0 Anion Gap 9 BUN 16 Creatinine 0.78 Estim Creat Clear Calc 111.79 Est GFR (MDRD) Af Amer 133 Est GFR (MDRD) Non-Af 110 BUN/Creatinine Ratio 20.5 H Glucose 100 Hemoglobin A1c Calcium 9.4 Troponin I < 0.015 TSH 07/28/18 07/28/18 05:30 05:30 WBC RBC Hgb Hct MCV MCH MCHC RDW RDW Differential Plt Count MPV Immature Gran % (Auto) Neut % (Auto) Lymph % (Auto) [place] % (Auto) Eos % (Auto) Baso % (Auto) Absolute Neuts (auto) Absolute Lymphs (auto) Total Counted PT 13.4 INR 1.0 APTT 33.8 Sodium Potassium Chloride Carbon Dioxide Anion Gap BUN Creatinine Estim Creat Clear Calc Est GFR (MDRD) Af Amer Est GFR (MDRD) Non-Af BUN/Creatinine Ratio Glucose Hemoglobin A1c 6.6 H Calcium Troponin I TSH Discharge Diet: Low fat/ Low Cholesterol, 1800 Calorie Control Diet, 2000 mg Sodium Diet Discharge Activity: Return to Normal Activity Home Medications: Medications to take at Discharge Omeprazole Magnesium [Prilosec Otc] 20 mg PO DAILY 04/04/17 Atorvastatin Calcium 20 mg PO DAILY 12/03/17 Lisinopril/Hydrochlorothiazide [Zestoretic 20/12.5 Tablet] 1 tablet PO DAILY 12/03/17 Aspirin E.C. [Ecotrin] 81 mg PO DAILY 07/27/18 Metformin HCl 500 mg PO DAILY #30 tablet 07/28/18 Following Prescrptions Were Given to Patient: Metformin HCl 500 mg PO DAILY #30 tablet Primary Care Physician: James Rizzo MD [Primary Care Provider] - Please follow up with your Primary Care Physician in: 1 week Disposition: Home Minutes spent on discharge:: 35 Patient Condition:: Stable Medical Necessity - Tobacco Use Smoking Status: Never smoker Tobacco Use: Non-smoker Meaningful Use Info Meaningful Use Diagnoses (Choose all that apply): None applicable <Betty Anne - Last Filed: 07/28/18 15:03> Discharge Date and Diagnosis - Secondary Discharge Diagnosis Chronic Problems DDD (degenerative disc disease) (Chronic) Spinal stenosis (Chronic) Prediabetes (Chronic) Anxiety (Chronic) Enlarged prostate (Chronic) Chronic low back pain (Chronic) Insomnia (Chronic) Poor dentition (Chronic) IBS (irritable bowel syndrome) (Chronic) HLD (hyperlipidemia) (Chronic) Ulcerative colitis (Chronic) Benign essential HTN (Chronic) Hospital Course and Treatment Procedures: EKG, Stress test Summary of Care Provided: Hospitalist note: Discharge summary above reviewed with above discharge plan. Patient admitted for chest pain for evaluation. His cardiac workup was unremarkable. His initial EKG revealed normal sinus rhythm without evidence of acute ischemic changes. Troponin was negative x3. Chest x-ray showed no acute findings. His routine blood work was unremarkable. TSH was normal. His vital signs were stable throughout admission. Telemetry revealed no evidence of cardiac arrhythmias. Patient underwent nuclear stress test that reported as negative without evidence of stress-induced myocardial ischemia with preserved ejection fraction. Patient mentioned that he had syncopal episode twice around 1 month ago. He had extensive workup that failed to identify the reason for syncope. Most recently, he had a Holter monitor that was taken off yesterday but results are pending. At this time, he denies any more chest pain. His vital signs are stable. ACS ruled out. Patient discharged home in a stable medical condition, discharged on his chronic home medication without any changes, recommended follow-up with cardiology regarding the results of the Holter monitor, recommended follow-up with PCP in 1 week. - Physical Exam General: Alert, Oriented x3, Cooperative, No apparent distress. HEENT: Atraumatic, PERRLA, EOMI. Neck: Supple, No JVD, Negative Carotid Bruits, Trachea Midline, Thyroid Normal. Lungs: Clear to auscultation, Normal air movement, No rhonchi, No wheeze, No rales. Cardiovascular: Regular rate, Regular Rhythm, Normal S1, Normal S2, PMI Normal. Abdomen: Bowel Sounds Present, Soft, Non Tender, Non-Distended, No Hepato-splenomegaly. Extremities: No clubbing, No cyanosis, No edema Skin: No rashes, No breakdown Neurological: Neuro grossly intact Vital Signs are stable. This note was generated with [employer] dictation software. It may contain incorrect words, spelling, and punctuation that were not noted in checking the note before signing. - Physical Exam Vital Signs Temp Pulse Resp BP Pulse Ox 98 F 86 20 H 112/79 95 07/28/18 06:34 07/28/18 07:15 07/28/18 06:34 07/28/18 06:34 07/28/18 06:34 Oxygen Flow Rate (L/min) 2 Oxygen Delivery Method Room Air Weight: 192 lb 10.944 oz Body Mass Index (BMI) 27.6 Finger Stick Blood Glucose 135 Intake and Output for Last 24 Hours 07/26/18 07/27/18 07/28/18 23:59 23:59 23:59 Intake Total 440 / 440 Balance 440 / 440 Laboratory Tests Past 24 Hrs 07/27/18 07/27/18 07/28/18 17:44 20:34 05:30 WBC RBC Hgb Hct MCV MCH MCHC RDW RDW Differential Plt Count MPV Immature Gran % (Auto) Neut % (Auto) Lymph % (Auto) [place] % (Auto) Eos % (Auto) Baso % (Auto) Absolute Neuts (auto) Absolute Lymphs (auto) Total Counted PT INR APTT Sodium 140 Potassium 3.2 L Chloride 102 Carbon Dioxide 29.0 Anion Gap 9 BUN 16 Creatinine 0.78 Estim Creat Clear Calc 111.79 Est GFR (MDRD) Af Amer 133 Est GFR (MDRD) Non-Af 110 BUN/Creatinine Ratio 20.5 H Glucose 100 Hemoglobin A1c Calcium 9.4 Troponin I < 0.015 < 0.015 07/28/18 07/28/18 07/28/18 05:30 05:30 05:30 WBC 6.9 RBC 5.19 Hgb 14.3 Hct 42.9 MCV 82.7 MCH 27.6 MCHC 33.3 RDW 14.2 RDW Differential 42.8 Plt Count 296 MPV 9.6 Immature Gran % (Auto) 0.100 Neut % (Auto) 58.9 Lymph % (Auto) 30.4 [place] % (Auto) 9.6 Eos % (Auto) 0.7 Baso % (Auto) 0.3 Absolute Neuts (auto) 4.0 Absolute Lymphs (auto) 2.08 Total Counted Not Reportable PT 13.4 INR 1.0 APTT 33.8 Sodium Potassium Chloride Carbon Dioxide Anion Gap BUN Creatinine Estim Creat Clear Calc Est GFR (MDRD) Af Amer Est GFR (MDRD) Non-Af BUN/Creatinine Ratio Glucose Hemoglobin A1c 6.6 H Calcium Troponin I Meaningful Use Info Meaningful Use Diagnoses (Choose all that apply): None applicable Code Visit OBSV E&M: 00001 Observation care discharge
== END 2018-07-28 10:58 | disposition home or self-care (01) ==
LOC: ED 14:30 → PCU 15:57
PROVIDERS: Physician Assistant; Admitting Provider Family Medicine; Emergency Provider Emergency Medicine; Family Provider Family Medicine; PCP Family Medicine; Visit Provider Hospitalist
DX: R07.89 Other chest pain (principal); E78.5 Hyperlipidemia, unspecified; N40.0 Benign prostatic hyperplasia without lower urinary tract symptoms; E11.9 Type 2 diabetes mellitus without complications; I10 Essential (primary) hypertension; Z79.899 Other long term (current) drug therapy; Z79.82 Long term (current) use of aspirin; K51.90 Ulcerative colitis, unspecified, without complications; K21.9 Gastro-esophageal reflux disease without esophagitis; M48.061 Spinal stenosis, lumbar region without neurogenic claudication; Z82.49 Family history of ischemic heart disease and other diseases of the circulatory system
CPT/HCPCS: 36415; 71045; 78452; 80048; 83036; 84443; 84484; 85025; 85610; 85730; 93005; 93017; 96360; 96361; 99218; 99285; A9500; J7030; A4216; G0378; J2785

== ENCOUNTER 2019-05-18 06:48 | Outpatient (RCR) | payer BC, SELFPAY ==
[2019-04-26 14:56] VITALS: BMI 25.1
--- NOTE | 2019-05-18 07:50 | HP.PTEVAL ---
Patient's Visit Information ELLIS RUBALCAVA is a 54 year old M referred to Physical Therapy by Briseyda Galvez DC with a diagnosis of post concussion syndrome. Date of Evaluation: 05/18/19 Physical Therapist: Yosvany Cooper, LATOYA, OCS, CSCS - Visit Plan Frequency: 1x/Week Duration: 4-6 Weeks Plan: weekly for progression of adaptationa dn habituation exercises. - Subjective Findings: Having animal care provider. Been having vertigo dizzy , off balance spells and had them for 10 months since fella dn hit head. Has neck pain treated by chiropractic. ORTIZ and neck pain are much better. Dizzyness described as off balance and constant. Not changing. Rocking forward in chair makes him worse. Sitting can feel funny in back of head. Lying down is much better. Feels tension in back of head. ORTIZ couple days per week posterior up to 5/10. Worse with dizzyness. Has seen neurologist for nerves in neck and was told that his symptoms come from neck. Dizzy symptoms unchanged with chiropractic. Can walk a mile and fine once he gets going but standing in one spot or moving sow is more unsteady. Leaning over sink can be off balance. Fell passing out in bathroom with Vaso vagal problema nd hit head. Also has light sensitivty and visual issues that trigger ORTIZ and dizzyness. Things can be a little blurry, can read but slowly. That is intermittent. Sleep is not great but that is normal for him. Been dissabled for a couple years due to back issues for 3-4 years after working for 25 years. Spends day walking but lessactvie lately due to this dizzyness. House chores are slow and struggle baut can get them done. - Pain ORTIZ Pain Intensity (Out of 10): 0 Pain Intensity Range: 0, 5 - Objective c/s AROM L rot 45, pain,..R rot 65, ext 35, flexion full. Feels tight. reflexes bi and tri normal 2/3. Sensation UE WNL to gross light touch. Full UE AROM without pain and 4/5 strength UE without myotomal abnormalities. - B hallpike jessica. - roll test. Oculomotor;. pursuit normal. Saccades symptmatic after 20 seconds 5/10. VOR symptomatic verticalmore than horizontal. normal convergence. - skew eye deviation. no nystagmus with gaze or head shake. Psture is forward head and scapula. - head thrust - Balance Scores Functional Gait Assessment Score: 30 % Disability: 0 CATSIB Score (Max score 120 seconds): 120 - Goals Goal 1:: abolish dizzyness adn unsteady feeling Goal Time Frame: 4-6 Weeks Goal 2:: Read and focus on doing dishes without symptoms. Goal Time Frame: 4-6 Weeks Goal 3:: symmetrical neck movement without tension or increased pain Goal Time Frame: 4-6 Weeks Goal 4:: Pt feel 90% back to normal Goal Time Frame: 4-6 Weeks - Rehabilitation Potential Physical Therapy Diagnosis: post concussion vertigo. Rehabilitation Potential: Fair - Anticipated Interventions Patient/Client Instruction: Educate patient on: Condition, Plan of Care For the Purpose of:: To decrease pain, To increase tolerance to activity/condition/position Comment: adaptationa dn habituation For the Purpose of:: To increase tolerance to activity/condition/position, To improve ability of physical actions for home/community/work/leisure Thank you for the opportunity to evaluate your patient. For Medicare and Medicare HMO plans, please review the plan of care and approve it. It will need to be FAXED BACK to us at [phone] for Medicare purposes. For Medicare only, by signing this I certify the plan of care. Please let me know if there are questions or concerns regarding this plan of care. Physician Signature: Date:
--- NOTE | 2019-07-05 15:31 | HP.PTDCNRP_ITS ---
HP - Discharge Summary (1) - Patient Information ELLIS RUBALCAVA was seen in my office for initial evaluation on 05/18/19. The following Plan of Care was established for this patient: Initial Frequency: 1x/Week Initial Duration: 4-6 Weeks - Anticipated Interventions Patient/Client Instruction: Educate patient on: Condition, Plan of Care For the Purpose of:: To decrease pain, To increase tolerance to activity/condi tion/position For the Purpose of:: To increase tolerance to activity/condition/position, To improve ability of physical actions for home/community/work/leisure This patient was last seen in our office 05/18/19. Pertinent comments regarding their Physical therapy will appear below: Pt seen one visit for eval, HEP instruct and establish POC. He neglected to attend any of those visits. At this point it has been over 6 weeks and I will discontinue due to nonattendance. At this point I will be discontinuing this patient from physical therapy. I would be happy to see this patient again in the future if found appropriate by the physician. Thank you! Yosvany Cooper, DPT, OCS, CSCS
== END 2019-05-18 19:00 | disposition home or self-care (01) ==
LOC: PT 06:48
PROVIDERS: Family Provider Family Medicine; PCP Family Medicine; Referring Provider Chiropractor; Visit Provider Chiropractor
DX: F07.81 Postconcussional syndrome (principal)
CPT/HCPCS: 97110; 97162

== ENCOUNTER 2019-08-23 16:10 | Emergency (ER) | payer BC, SELFPAY ==
[2019-04-26 14:56] VITALS: BMI 25.1
[2019-08-23 16:11] VITALS: BP 151/91; PULSE 113; RESP 15; TEMP 36.8; O2SAT 99; BMI 26.1
[2019-08-23 16:24] VITALS: BP 160/96; PULSE 100; RESP 23; O2SAT 97
--- NOTE | 2019-08-23 16:30 | EKG12_ITS ---
Test Reason : PALPITATIONS Blood Pressure : / mmHG Vent. Rate : 097 BPM Atrial Rate : 097 BPM P-R Int : 132 ms QRS Dur : 096 ms QT Int : 368 ms P-R-T Axes : 053 051 -29 degrees QTc Int : 467 ms Sinus rhythm with Premature supraventricular complexes Cannot rule out Inferior infarct , age undetermined Abnormal ECG Confirmed by GRUPO WATERS, DIANA ([id number]), multimedia editor IDALIA CARTWRIGHT ([id number]) on 08/27/2019 11:55:24 AM Referred By: BRETT Confirmed By:DIANA LOMBARDO MD
--- NOTE | 2019-08-23 16:31 | RAD_ITS ---
STUDY: X-RAY CHEST REASON FOR EXAM: Male, 54 years old. Heart flutters and palpitations TECHNIQUE: AP COMPARISON: 07/27/2018 FINDINGS: EKG leads project over the chest. The lungs are clear and expanded. There is no demonstrated pleural abnormality. Normal size heart. Normal mediastinum and emir. Normal visualized pulmonary arteries. Normal visualized aortic arch and descending thoracic aorta. There are diffuse degenerative changes of the visualized thoracic spine. Normal visualized ribs, clavicles, and shoulders. There is no demonstrated abnormality of the visualized soft tissue structures of the upper abdomen. RAD/Chest 1 View (Portable) IMPRESSION: Stable, nonacute portable x-ray examination of the chest. Electronically Signed: Bobo Greenberg MD (Brooks) at 16:46 EST , Service support ,
--- NOTE | 2019-08-23 16:31 | ED.VISSUMM ---
- ER Visit Summary Date of Service: 08/23/19 Chief Complaint: Heart fluttering History of Present Illness: The patient is a 54 M who states that for the past 5 days he has felt a very consistent fluttering in his chest and skipped heartbeats. States is very uncomfortable. He notes cramps in his legs. He has had symptoms like this in the past but they have usually gone away and were much milder. He notes that he has not had any significant medication changes other than his metformin being stopped. No thyroid disorders. He had a stress test July 2018 that was negative. He drinks 1 cup of coffee per day and then after that drinks only water. He was out to dinner today when symptoms seem to worsen states that he looked pale. He was not diaphoretic. Symptoms have been consistent for greater than 8 hours. Physical Examination: Afebrile blood pressure 160/96 heart rate of 100 Gen: Well-nourished well-developed Head: Normocephalic atraumatic Eyes: Perrl EOMI ENT: TMs clear no rhinorrhea moist mucous membranes Neck: Supple no lymphadenopathy no JVD nontender CVS: Regular rate tachycardic rhythm frequent PVCs no murmurs normal S1-S2 Respiratory: No distress clear to auscultation bilaterally chest nontender Abdomen: Soft nontender nondistended normal bowel sounds no masses Back: Nontender Extremity: Nontender no edema Skin: Normal color no rash Neuro: alert orientated ?3 CN II-XII intact normal strength sensation reflexes gait cerebellar Psych: Normal affect normal mood Test Results: EKG shows a sinus rhythm at a rate of 97 with PVCs. CBC normal. Chemistry showed a potassium 3.3. Magnesium 1.8. TSH 1.31. Troponin negative. D-dimer 0.31. Chest x-ray showed a normal mediastinal silhouette. Emergency Department Course and Treatment: Patient received a oral dose of potassium. I will write for several more days. He has an upcoming appointment with his PCP the beginning of August. He will discuss today's palpitations/PVCs/hypokalemia at that time. Return if worsening or concerns Impression: 1. Premature ventricular contractions 2. Palpitations 3. Hypokalemia This note was generated with PharmMDation software. It may contain incorrect words, spelling, and punctuation that were not noted in review of the chart prior to signing ED Disposition - Plan for ED Patient: Disposition: Home or Assisted Living Instructions: Premature Ventricular Contractions Prescriptions: Potassium Chloride [K-Dur] 20 meq PO DAILY #5 tab Prescription Printed Additional Instructions: Follow-up with your PCP as scheduled and return if worsening or any concerns
[2019-08-23 16:45] LABS: Absolute Lymphocyte Count 1.24 X10^3/uL (0.83-4.51); Absolute Neutrophil Count 5.2 X10^3/uL (2.0-7.7); Basophil# 0.03 X10^3/uL; Basophil% 0.4 % (0-1); Eosinophil# 0.03 X10^3/uL; Eosinophils% 0.4 % (0-5); Hematocrit 44.1 % (40-54); Hemoglobin 14.4 g/dL (13.0-16.5); Lymphocyte # 1.24 X10^3/ul (4.0); Lymphocyte % 17.5 % (19-41); Mean Corp Hgb Conc 32.7 g/dL (32-36); Mean Corpuscular Hgb 27.7 pg (27.0-32.0); Mean Platelet Vol. 9.5 fl (6.2-12.0); Monocyte# 0.52 X10^3/uL; Monocyte% 7.4 % (0-10); NRBC Flagged by Analyzer 0 % (0-5); Neutrophil # 5.23 X10^3/uL (2.7-7.7); Platelet Count 227 K/mm3 (150-450); RBC Distribution Width CV 13.3 % (11.6-14.6); RBC Distribution Width SD 41.1 fl (35.1-43.9); Red Blood Count 5.19 M/mm3 (4.6-6.2); White Blood Count 7.1 K/mm3 (4.4-11.0)
[2019-08-23 17:00] LABS: D-Dimer Quantitative (DVT/PE) 0.31 FEU/ug/m (0.27-0.49)
[2019-08-23 17:09] LABS: ALB/GLOB Ratio 1.3 RATIO (0.9-2.4); AST(SGOT) 13 U/L (15-37); Alanine Aminotransfer ALT/SGPT 32 U/L (16-61); Albumin, Serum 4.4 g/dL (3.2-5.0); Alkaline Phosphatase 66 U/L (45-117); Anion Gap 8 (5-15); BUN 16 mg/dL (7-18); BUN/Creat Ratio 17.8 RATIO (10-20); Calcium,Total 9.2 mg/dL (8.5-10.1); Chloride 106 mmol/L (98-107); EST Glomerular Filtration Rate 93 mL/min (>60); Est Glom Filt Rate - Afr Amer 113 mL/min (>60); Estimated Creatinine Clearance 95.76 ml/min; Globulin 3.4 g/dL (2.2-4.2); Glucose 122 mg/dL (74-106); Magnesium 1.8 mg/dL (1.6-2.6); Potassium 3.3 mmol/L (3.5-5.1); Protein, Total 7.8 g/dL (6.4-8.2); Sodium Level 142 mmol/L (136-145); Thyroid Stim Hormone (TSH) 1.31 uIU/mL (0.358-3.74)
[2019-08-23 17:37] VITALS: BP 155/88; PULSE 84; RESP 17; O2SAT 98
== END 2019-08-23 17:43 | disposition home or self-care (01) ==
PROVIDERS: Emergency Provider Emergency Medicine; Family Provider Family Medicine; PCP Family Medicine
DX: I49.3 Ventricular premature depolarization (principal); R00.2 Palpitations; E87.6 Hypokalemia; E11.9 Type 2 diabetes mellitus without complications; I10 Essential (primary) hypertension; E78.00 Pure hypercholesterolemia, unspecified; Z79.82 Long term (current) use of aspirin; Z79.899 Other long term (current) drug therapy
CPT/HCPCS: 71045; 80053; 83735; 84443; 84484; 85025; 85379; 93005; 99285; A4216

== ENCOUNTER 2019-08-25 09:22 | Emergency (ER) | payer BC, SELFPAY ==
[2019-08-25 09:23] VITALS: BP 151/88; PULSE 92; RESP 17; TEMP 36.6; O2SAT 99; BMI 25.3
--- NOTE | 2019-08-25 09:32 | EKG12_ITS ---
Test Reason : CP Blood Pressure : / mmHG Vent. Rate : 076 BPM Atrial Rate : 076 BPM P-R Int : 134 ms QRS Dur : 098 ms QT Int : 396 ms P-R-T Axes : 053 044 017 degrees QTc Int : 445 ms Normal sinus rhythm Normal ECG Confirmed by DIANA LOMBARDO MD ([id number]), greeting card editor IDALIA CARTWRIGHT ([id number]) on 08/27/2019 2:42:28 PM Referred By: CRISTINA Confirmed By:DIANA LOMBARDO MD
[2019-08-25 09:41] VITALS: O2SAT 100
[2019-08-25 09:42] VITALS: BP 144/87; PULSE 80; RESP 20; O2SAT 100
[2019-08-25 10:00] LABS: Absolute Lymphocyte Count 1.38 X10^3/uL (0.83-4.51); Absolute Neutrophil Count 2.7 X10^3/uL (2.0-7.7); Basophil# 0.03 X10^3/uL; Basophil% 0.6 % (0-1); Eosinophil# 0.04 X10^3/uL; Eosinophils% 0.9 % (0-5); Hematocrit 46.6 % (40-54); Lymphocyte # 1.38 X10^3/ul (4.0); Lymphocyte % 29.4 % (19-41); Mean Corp Hgb Conc 32.2 g/dL (32-36); Mean Corpuscular Hgb 27.6 pg (27.0-32.0); Mean Corpuscular Volume 85.7 fL (80-94); Mean Platelet Vol. 9.9 fl (6.2-12.0); Monocyte# 0.57 X10^3/uL; Monocyte% 12.1 % (0-10); NRBC Flagged by Analyzer 0 % (0-5); Neutrophil # 2.67 X10^3/uL (2.7-7.7); Neutrophil % 56.8 % (47-70); Platelet Count 231 K/mm3 (150-450); RBC Distribution Width CV 13.7 % (11.6-14.6); RBC Distribution Width SD 42.3 fl (35.1-43.9); Red Blood Count 5.44 M/mm3 (4.6-6.2); White Blood Count 4.7 K/mm3 (4.4-11.0)
[2019-08-25 10:03] LABS: Anion Gap 6 (5-15); BUN 13 mg/dL (7-18); BUN/Creat Ratio 16.9 RATIO (10-20); Calcium,Total 9.5 mg/dL (8.5-10.1); Chloride 106 mmol/L (98-107); Creatinine, Serum 0.77 mg/dL (0.70-1.30); EST Glomerular Filtration Rate 111 mL/min (>60); Est Glom Filt Rate - Afr Amer 135 mL/min (>60); Estimated Creatinine Clearance 111.92 ml/min; Glucose 110 mg/dL (74-106); Potassium 3.7 mmol/L (3.5-5.1); Sodium Level 141 mmol/L (136-145)
[2019-08-25 11:23] VITALS: BP 129/83; PULSE 73; O2SAT 98
--- NOTE | 2019-08-25 12:57 | ED.DCSUM_ITS ---
- ER Visit Summary Date of Service: 08/25/19 Chief Complaint: Palpitations History of Present Illness: The patient is a 54 M history of oaf-mvweusr-tyufpwvom diabetes, hypertension high cholesterol. Patient's had palpitations intermittently since . Was seen in emergency department that time had a negative work-up including a normal TSH. He denies drinking excessive caffeine usually 1 cup of coffee a day. No energy drinks. And no underlying cardiac history. No chest pain or exertional dyspnea. Physical Examination: Well-appearing middle-aged male no acute distress vital signs stable afebrile. Pulse ox 90% room air no signs hypoxia. HEENT exam normal. Neck normal no thyromegaly. Lungs clear to auscultation bilaterally. Heart regular rate and rhythm no murmur noted he does have occasional PVC about every 8 beats on the monitor. Abdomen soft and nontender normal bowel sounds no peritoneal signs. Extremities moves all 4. Calves nontender without edema or cords. Neurologically is awake and alert. Test Results: CBC normal. Chemistries normal. Troponin normal. TSH was normal on last visit. EKG sinus rhythm with no acute abnormalities on EKG there were no PVCs on the monitor he had PVCs. Emergency Department Course and Treatment: Repeat exam no change at 1258. Will be discharged home. We went over all test results. Treatment Plan: Follow-up with his primary care physician. Disposition: Discharge Impression: Acute palpitations secondary to premature ventricular contractions This note was generated with Rubikloud dictation software. It may contain incorrect words, spelling, and punctuation that were not noted in review of the chart prior to signing ED Disposition - Plan for ED Patient: Referrals: James Rizzo MD [Primary Care Provider] -
--- NOTE | 2019-08-25 12:59 | ED.DEP ---
ED Disposition - Plan for ED Patient: Disposition: Home or Assisted Living Instructions: Premature Ventricular Contractions, Palpitations Referrals: James Rizzo MD [Primary Care Provider] - As Needed Additional Instructions: This should resolve if not he can follow-up with her primary care physician. This is from premature ventricular beats and is safe.
[2019-08-25 13:06] VITALS: BP 132/85; PULSE 72; RESP 18; O2SAT 100
== END 2019-08-25 13:07 | disposition home or self-care (01) ==
PROVIDERS: Emergency Provider Emergency Medicine; Family Provider Family Medicine; PCP Family Medicine
DX: I49.3 Ventricular premature depolarization (principal); R00.2 Palpitations; E11.9 Type 2 diabetes mellitus without complications; E78.00 Pure hypercholesterolemia, unspecified; I10 Essential (primary) hypertension; Z79.82 Long term (current) use of aspirin; Z79.899 Other long term (current) drug therapy
CPT/HCPCS: 80048; 84484; 85025; 93005; 99283; A4216

== ENCOUNTER 2022-06-23 17:26 | Emergency (ER) | payer BC, SELFPAY ==
[2022-06-23 17:27] VITALS: BP 164/98; PULSE 105; RESP 18; TEMP 36.6; O2SAT 99; BMI 30.1
--- NOTE | 2022-06-23 17:40 | CT_ITS ---
EXAM: CT NECK WITH INTRAVENOUS CONTRAST CLINICAL INDICATION: Dysphagia TECHNIQUE: Helically acquired images were obtained of the neck with intravenous contrast. This CT exam was performed using one or more of the following dose reduction techniques: automated exposure control, adjustment of the mA and/or kV according to patient size, and/or use of iterative reconstruction technique. This report was created using [employer] report [employer] technology. CONTRAST: IV 100mL Isovue-370 RADIATION DOSE: CTDIvol = 17.55 mGy, DLP = 513.03 mGy-cm COMPARISON: 03/13/2016 FINDINGS: NASOPHARYNX: Unremarkable. SUPRAHYOID NECK: Unremarkable. Oropharynx, oral cavity, parapharyngeal space and retropharyngeal space are unremarkable. INFRAHYOID NECK: Unremarkable. The larynx, hypopharynx and supraglottis are unremarkable. SUBMANDIBULAR/PAROTID GLANDS: Unremarkable. Glands are normal in size. THYROID: The thyroid is heterogenous. It contains nodules. This should be further evaluated with ultrasound. This can be performed as an outpatient. SINUSES: There is a mucous retention cyst and/or polyp of the right maxillary sinus. BONES/JOINTS: Degenerative findings of the cervical spine. No acute fracture. SOFT TISSUES: Unremarkable. VASCULATURE: No acute findings. LYMPH NODES: Unremarkable. No lymphadenopathy. LUNG APICES: Unremarkable as visualized. CT/Soft Tissue Neck WITH Contrast IMPRESSION: 1. The thyroid is heterogenous. It contains nodules. This should be further evaluated with ultrasound. This can be performed as an outpatient. 2. There is a mucous retention cyst and/or polyp of the right maxillary sinus. Electronically Signed: Dallas Avalos MD at 18:52 EDT ,
--- NOTE | 2022-06-23 17:41 | EX.ED.DYSGE1 ---
HPI History of Present Illness Chief Complaint: Sore Throat Narrative Narrative: Patient with past medical history of prediabetes presents with sore throat, and difficulty swallowing for the last week and a half. He states he was seen at urgent care because he had a sore throat and states that it feels dry. They swabbed him for strep which was negative. He denies any fever or chills. However, he states that over the last week and a half he has had increasing problems swallowing. While he has pain with swallowing, he states that he feels as if something was stuck in the back of his throat. He occasionally gets nauseated. He is able to swallow food and liquid, but he states his throat feels dry and thick. He has no other symptoms. PFSH PFSH Home Medications omeprazole magnesium 20 mg tablet,delayed release 20 mg PO DAILY 04/04/17 [History Last Taken 07/27/18] atorvastatin 20 mg tablet 20 mg PO DAILY cholesterol 12/03/17 [History Last Taken 07/27/18] lisinopril 20 mg-hydrochlorothiazide 12.5 mg tablet 1 tab PO DAILY blood pressure 12/03/17 [History Last Taken 07/27/18] aspirin 81 mg tablet,delayed release 81 mg PO DAILY HEART HEALTH 07/27/18 [History Last Taken 07/27/18] potassium chloride 20 mEq tablet,extended release(part/cryst) 20 meq PO DAILY #5 tabs 08/23/19 [Rx Last Taken Unknown] Allergy/AdvReac Type Severity Reaction Status Date / Time amoxicillin Allergy Rash Verified 06/23/22 17:26 tramadol Allergy Other Verified 06/23/22 17:26 diphenhydramine AdvReac Other Verified 06/23/22 17:26 [From Benadryl] gabapentin AdvReac Other Verified 06/23/22 17:26 prochlorperazine AdvReac Other Verified 06/23/22 17:26 [From Compazine] NARCOTICS AdvReac Other Uncoded 06/23/22 17:26 Social History Smoking Status: Never smoker alcohol intake: never substance use type: does not use what type of physical activity do you participate in: none and walking frequency: 5-6 times per week ROS ROS ED ROS Narrative Constitutional: No fever, no chills. HEENT: Positive sore throat. Positive difficulty swallowing. Dry throat, feels as if something is stuck. No neck pain. No loss of vision. No rhinorrhea. Cardiovascular: No chest pain. No palpitations. No pedal edema. Respiratory: No cough, no shortness of breath. Abdominal: No abdominal pain. Positive nausea. No vomiting. Genitourinary: No dysuria. No hematuria. Musculoskeletal: No myalgias. No arthralgias. Neurologic: No headaches. No dizziness. No lightheadedness. Skin: No rash. No change in color. Psychiatric: No depression. No anxiety. EXAM Physical Exam Narrative Exam Narrative: Afebrile. Vital signs noted. HEENT: Normocephalic. Atraumatic. PERRL, EOMI. Neck soft and supple. No point tenderness or step off. Airway patent. No drooling or trismus. No Yusef angina. Cardiovascular: Regular rate and rhythm. No murmurs, rubs, or gallops appreciated. Respiratory: No tachypnea. Lungs clear to auscultation bilaterally. Gastrointestinal: Abdomen soft, nontender, with normoactive bowel sounds. No rebound or guarding. Neurological: Awake. Alert. Nonfocal, nonlateralizing. Skin: No rash. Normal color. No pallor. Musculoskeletal: No pedal edema. Full range of motion extremities. Const Vital Signs: 06/23/22 17:27 06/23/22 18:12 Temperature 97.8 F Temperature Source Temporal Pulse Rate 105 H Respiratory Rate 18 Respiratory Effort Normal Respiratory Pattern Normal Blood Pressure 164/98 H Blood Pressure Mean 120 Pulse Ox 99 Oxygen Delivery Method Room Air MDM MDM MDM Narrative Medical decision making narrative: Given that his symptoms have been ongoing for a week and a half, and worsened today, I will obtain CT imaging of the soft tissue of his neck. I obtained a CBC and a BMP. He was bolused normal saline 1 L intravenously. CBC is grossly unremarkable. BMP is also grossly unremarkable except for glucose of 107 with a normal anion gap of 6. CT of the soft tissues of the neck was obtained which shows multiple thyroid nodules that can be evaluated as an outpatient. No evidence of retropharyngeal abscess, airway is patent. At this point in time, I feel he be discharged safely home with follow-up to his primary care physician for ultrasound of his thyroid nodules, and perhaps referral for his reported dysphagia that has been ongoing for the last week at least. Return instructions to the emergency department were reviewed. Disposition is discharged home in stable condition. Lab Data Attestation: I reviewed the patient's lab results. Labs: Laboratory Results - last 24 hr 06/23/22 06/23/22 17:50 17:50 WBC 7.5 RBC 5.33 Hgb 14.7 Hct 45.3 MCV 85.0 MCH 27.6 MCHC 32.5 RDW Std Deviation 42.2 RDW Coeff of Malu 13.7 Plt Count 249 MPV 9.3 Sodium 139 Potassium 3.5 Chloride 104 Carbon Dioxide 29.0 Anion Gap 6 BUN 18 Creatinine 0.97 Estim Creat Clear Calc 85.71 Est GFR (MDRD) Af Amer 102 Est GFR (MDRD) Non-Af 84 BUN/Creatinine Ratio 18.5 Glucose 107 H Calcium 9.5 Radiography Diagnostic Testing: Clinical Impression(s) from Imaging Studies Soft Tissue Neck CT 06/23/22 17:40 IMPRESSION: 1. The thyroid is heterogenous. It contains nodules. This should be further evaluated with ultrasound. This can be performed as an outpatient. 2. There is a mucous retention cyst and/or polyp of the right maxillary sinus. Electronically Signed: Dallas Avalos MD at 18:52 EDT Reading Location ID and State: [facility] / [place] , Service support , Discharge Plan Triage Chief Complaint: Sore Throat ED Provider: Amarjit Claire Dx/Rx/DC Orders Clinical Impression: Dysphagia, Multiple thyroid nodules Instructions: ED Dysphagia (Adult) Prescriptions: No Action omeprazole magnesium 20 MG tablet,delayed release (DR/EC) 20 mg PO DAILY atorvastatin 20 MG tablet 20 mg PO DAILY lisinopril-hydrochlorothiazide 1 TABLET tablet 1 tab PO DAILY aspirin 81 MG tablet 81 mg PO DAILY potassium chloride 20 MEQ tablet 20 meq PO DAILY Qty: 5 0RF Primary Care Provider: James Rizzo Referrals: James Rizzo MD [Primary Care Provider] - As soon as possible Disposition Disposition: Home, Self Care
[2022-06-23] MEDS: 0.9% Normal Saline 1,000 ML 999 ML IV (17:53)
[2022-06-23 18:05] LABS: Hematocrit 45.3 % (40-54); Hemoglobin 14.7 g/dL (13.0-16.5); Mean Corp Hgb Conc 32.5 g/dL (32-36); Mean Corpuscular Hgb 27.6 pg (27.0-32.0); Mean Platelet Vol. 9.3 fl (6.2-12.0); Platelet Count 249 K/mm3 (150-450); RBC Distribution Width CV 13.7 % (11.6-14.6); RBC Distribution Width SD 42.2 fl (35.1-43.9); Red Blood Count 5.33 M/mm3 (4.6-6.2); White Blood Count 7.5 K/mm3 (4.4-11.0)
[2022-06-23 18:17] LABS: Anion Gap 6 (5-15); BUN 18 mg/dL (7-18); BUN/Creat Ratio 18.5 RATIO (10-20); Calcium,Total 9.5 mg/dL (8.5-10.1); Chloride 104 mmol/L (98-107); Creatinine, Serum 0.97 mg/dL (0.70-1.30); EST Glomerular Filtration Rate 84 mL/min (>60); Est Glom Filt Rate - Afr Amer 102 mL/min (>60); Estimated Creatinine Clearance 85.71 ml/min; Glucose 107 mg/dL (74-106); Potassium 3.5 mmol/L (3.5-5.1); Sodium Level 139 mmol/L (136-145)
== END 2022-06-23 19:15 | disposition home or self-care (01) ==
PROVIDERS: Emergency Provider Emergency Medicine; PCP Family Medicine; Visit Provider Emergency Medicine
DX: R13.10 Dysphagia, unspecified (principal); E04.2 Nontoxic multinodular goiter; R73.03 Prediabetes; Z79.82 Long term (current) use of aspirin
CPT/HCPCS: 70491; 80048; 85027; 96360; 99283; J7030; Q9967; A4216

== ENCOUNTER 2024-05-17 13:38 | Emergency (ER) | payer MEDICARE, SELFPAY ==
[2024-05-17 13:39] VITALS: BP 151/100; PULSE 125; RESP 18; TEMP 36.1; O2SAT 95
--- NOTE | 2024-05-17 14:17 | CT_ITS ---
STUDY: CT ABDOMEN AND PELVIS WITH CONTRAST REASON FOR EXAM: Male, 59 years old. Abd pain and diarrhea. Prior umbilical and inguinal hernia repair. RADIATION DOSAGE (If Supplied By Facility): CTDIvol = ( 15.93 ) mGy, DLP = ( 1266.07 ) mGycm TECHNIQUE: Transaxial images were obtained from the dome of the diaphragm to the symphysis pubis without oral contrast. IV 100mL Isovue-300 was administered. Sagittal and coronal images were reconstructed. Individualized dose optimization techniques were used for this CT. COMPARISON: Comparison is made with prior study dated June 23, 2018. FINDINGS: The visualized lung bases are unremarkable. The visualized portions of the heart are within normal limits. There is decreased attenuation of the liver consistent with steatosis. Likely. There is a 1.7 cm cyst in the medial aspect of the left lobe of the liver. Patient is status post cholecystectomy. Normal spleen. Normal pancreas. Normal bilateral adrenal glands. There is a 6.5 cm x 6 cm cyst in the mid to lower pole of the right kidney. There is a 2.3 cm cyst in the posterior aspect of the left kidney as well as in the upper pole measuring 2 cm. There is a nonobstructive calculus in the upper pole calyx of the left kidney. Normal visualized stomach. Short segment of proximal small bowel loops demonstrating wall thickness and possible inflammatory disease. No evidence of intussusception. Normal colon. The appendix is visualized and appears normal. Normal abdominal aorta. Normal inferior vena cava. Normal retroperitoneum. Normal urinary bladder. Heterogeneous enlargement of the prostate. The prostate measures 4.8 cm x 5.8 cm. This causes indentation of the bladder base. Calcifications are seen within the prostate. There is evidence of prior umbilical hernia repair. Normal osseous structures. CT/Abdomen/Pelvis W IV Cont ONLY IMPRESSION: Abnormal appearance of a segment of proximal small bowel as described with the mild thickening and inflammatory changes. There is no evidence of obstruction at that site. Follow-up recommended. Bilateral renal cysts. Hepatomegaly and fatty infiltration of the liver. Heterogeneous enlargement of the prostate. Bilateral renal cysts. Electronically Signed: Piyush Jernigan MD at 15:54 EDT ,
--- NOTE | 2024-05-17 14:18 | EDS_ITS ---
HPI HPI - GI History of Present Illness Chief Complaint: Abd Pain Detail of Chief Complaint: Abdominal cramping and diarrhea for 7 to 8 days. No melena or gross blood. Informant: patient and spouse/S.O. Abdominal Pain/Flank Pain Onset: Days Context: Gradual Onset Timing: Continuous Quality: Cramping Location: Diffuse Current Severity: Gone Maximum Severity: Mild Worsened by: Nothing Relieved by: Nothing Nausea/Vomiting/Emesis GI Symptom: Negative for Nausea or Vomiting Diarrhea/Melena/Hematochezia GI Symptom: Positive for Diarrhea; Negative for Melena or Hematochezia Onset: Days Stool Quality: Positive for Loose Severity: Moderate Associated Symptoms Associated Symptoms: Negative for Dysuria, Frequency, Hematuria or Urgency Narrative Narrative: 59-year-old male history of prior colitis years ago for which she had a colonoscopy and biopsies. Says he done very well he had no problems with the recently. For the last 8 days he has had diarrhea has been loose. Denies any gross blood or melena. He has had some mild crampy abdominal pain. Denies any vomiting. No fever. No dysuria. He has had a prior cholecystectomy and 2 prior hernia repairs. Patient is also diabetic. Denies any recent antibiotics. No recent travel or surgery nor hospitalization. Prior similar symptoms: Yes Recent Illness/Hospitalization: No PFSH PFS Home Medications ?Medication ?Instructions ?Recorded ?Last Taken ?Type omeprazole magnesium 20 mg 20 mg PO DAILY 04/04/17 07/27/18 History tablet,delayed release atorvastatin 20 mg tablet 20 mg PO DAILY cholesterol 12/03/17 07/27/18 History aspirin 81 mg tablet,delayed 81 mg PO DAILY HEART HEALTH 07/27/18 07/27/18 History release potassium chloride 20 mEq 20 meq PO DAILY #5 tabs 08/23/19 Unknown Rx tablet,extended release(part/cryst) lisinopril 40 mg tablet 40 mg PO DAILY 05/17/24 Unknown History Allergy/AdvReac Type Severity Reaction Status Date / Time amoxicillin Allergy Rash Verified 05/17/24 13:39 tramadol Allergy Other Verified 05/17/24 13:39 diphenhydramine (From AdvReac Other Verified 05/17/24 13:39 Benadryl) gabapentin AdvReac Other Verified 05/17/24 13:39 Opioids - Morphine Analogues AdvReac Other Verified 05/17/24 13:39 prochlorperazine (From AdvReac Other Verified 05/17/24 13:39 Compazine) Surgical History H/O hernia repair Hx of cholecystectomy Social History Smoking Status: Never smoker alcohol intake: never substance use type: does not use what type of physical activity do you participate in: none and walking frequency: 5-6 times per week ROS ROS ED ROS Narrative Diarrhea. Some abdominal cramping. Constitutional Constitutional ED: Denies fever(s) ENT ENT ED: Denies ear pain Cardiovascular Cardiovascular: Denies chest pain Respiratory/Chest Respiratory/Chest: Denies cough or dyspnea Gastrointestinal Gastrointestinal: Reports abdominal pain and diarrhea; Denies constipation, melena, nausea or vomiting Genitourinary Genitourinary ED: Denies dysuria or hematuria Musculoskeletal Musculoskeletal: Denies arthralgias or back pain Integumentary Denies abscess or Abrasions Neurologic Neurologic: Denies headache(s) Psychiatric Psychiatric: Denies anxiety Endocrine Endocrinology: Denies polydipsia Hematologic/Lymphatic Hematologic/Lymphatic: Denies easy bleeding Allergic/Immunologic Allergic/Immunologic ED: Denies mouth swelling, tongue swelling or urticaria EXAM Physical Exam Narrative Exam Narrative: 59-year-old male vital signs stable he is tachycardic. He does clearly look dehydrated. H EENT exam dry mucous membranes otherwise unremarkable. Neck nontender no lymphadenopathy. Lungs clear to auscultation bilaterally. Heart tachycardic 120 no murmur abdomen soft, nontender, nondistended normal bowel sounds without peritoneal signs. He has no abdominal tenderness. Moving all 4 extremities. Nontender no edema. Neurologically is awake and alert no focal motor deficits. Back is nontender. Const Vital Signs: 05/17/24 13:39 05/17/24 15:38 Temperature 96.9 F L Temperature Source Temporal Pulse Rate 125 H 68 Respiratory Rate 18 15 Blood Pressure 151/100 H 112/64 Blood Pressure Mean 117 80 Pulse Ox 95 98 Oxygen Delivery Method Room Air Room Air Positive well nourished and well developed; Negative for cachectic, contractures or unkempt General Appearance ED: well developed and NAD; Negative for unkempt, cachectic, contractures or pallor Nutritional Appearance: Negative for cachectic HEENT Reports dry mucous membranes; Denies moist mucous membranes normocephalic and atraumatic; Negative for trauma or tenderness Mouth ED: Yes dry mucous membranes Mouth: dry mucous membranes Eyes PERRL and EOMs intact bilaterally General Eye ED: Negative for pale conjunctiva or scleral icterus Neck supple and no JVD General: Negative for tenderness Carotids: Negative for other Lymph Lymphatic: Negative for other Resp normal respiratory effort and clear to auscultation bilaterally Effort and Inspection: Negative for respiratory distress Auscultation: Negative for rales, rhonchi or wheezes Cardio regular rhythm, S1 normal heart sound, S2 normal heart sound and no murmurs; Negative for regular rate Rate: tachycardic Rhythm: Negative for abnormal rhythm GI non-tender, non-distended and no masses Inspection: Negative for abdominal distention Palpation: soft; Negative for tender, guarding, hernia, mass, pulsatile mass or rebound tenderness present Back/Spine no CVA tenderness General Back: Negative for CVA tenderness Extremity full ROM General Extremety ED: Negative for edema, tenderness or other findings General Extremity: Negative for edema or other findings Neuro CN's II-XII intact bilaterally and moves all extremities Sensorium / Orientation: alert, oriented to person, oriented to place and oriented to time; Negative for orientation impaired, confused, lethargic or stuporous Motor Exam: strength 5/5 throughout Psych mental status grossly normal and thought process normal Appearance: Negative for unkempt Attitude: No agitated Mood & Affect: Negative for depressed, anxious or tearful Skin no wounds General Skin Exam: Negative for jaundice or pallor Lesions: no lesions Rashes: no rashes Trauma: Negative for abrasion Nails: Negative for discolored MDM MDM MDM Narrative Medical decision making narrative: 59-year-old male with diarrhea and crampy abdominal discomfort. Currently is pain-free. Clinically looks dehydrated. This may be from colitis versus infectious diarrhea versus other etiologies. CAT scan and labs are pending. To be treated with a liter normal saline. He does not need anything for pain he is not having any pain. Repeat exam patient is doing well. Abdomen benign. He is resting comfortably. We went over all his test results including the normal labs and CT and of outpatient follow-up with his primary care physician. Fluids and rest. Imodium for the diarrhea. History & Record Review Discussion w/independent historian: Patient and Family Additional record(s) reviewed:: Prior inpatient record, Prior outpatient record, Prior ED visit and Prior labs Lab Data Attestation: I reviewed the patient's lab results. Lab results narrative: CBC normal. White count of 6. H&H 15 and 47. Platelets 282. Electrolytes show gap 7. Normal BUN and creatinine. Glucose 125. Liver enzymes normal. Lipase normal. Labs: Laboratory Results - last 24 hr 05/17/24 14:47 WBC 6.5 RBC 5.73 Hgb 15.2 Hct 47.1 MCV 82.2 MCH 26.5 L MCHC 32.3 RDW Std Deviation 41.8 RDW Coeff of Malu 14.0 Plt Count 282 MPV 9.4 Immature Gran % (Auto) 0.300 Neut % (Auto) 70.0 Lymph % (Auto) 20.2 [place] % (Auto) 8.4 Eos % (Auto) 0.3 Baso % (Auto) 0.8 Absolute Neuts (auto) 4.6 Absolute Lymphs (auto) 1.32 Nucleated RBC % 0 Sodium 136 Potassium 3.6 Chloride 103 Carbon Dioxide 26.0 Anion Gap 7 BUN 16 Creatinine 0.97 Est GFR (MDRD) Af Amer 102 Est GFR (MDRD) Non-Af 84 BUN/Creatinine Ratio 16.6 Glucose 125 H Calcium 9.9 Total Bilirubin 0.60 AST 30 ALT 50 Alkaline Phosphatase 74 Total Protein 7.9 Albumin 4.1 Globulin 3.8 Albumin/Globulin Ratio 1.1 Lipase 32 Radiography Diagnostic Testing: Clinical Impression(s) from Imaging Studies Abdomen/Pelvis CT 05/17/24 14:17 IMPRESSION: Abnormal appearance of a segment of proximal small bowel as described with the mild thickening and inflammatory changes. There is no evidence of obstruction at that site. Follow-up recommended. Bilateral renal cysts. Hepatomegaly and fatty infiltration of the liver. Heterogeneous enlargement of the prostate. Bilateral renal cysts. Electronically Signed: Piyush Jernigan MD at 15:54 EDT , Discharge Plan Triage Chief Complaint: Abd Pain ED Provider: Petey Colmenares Dx/Rx/DC Orders Clinical Impression: Diarrhea, Abdominal pain Instructions: ED Diarrhea, Unknown Cause Prescriptions: No Action omeprazole magnesium 20 MG tablet,delayed release (DR/EC) 20 mg PO DAILY atorvastatin 20 MG tablet 20 mg PO DAILY aspirin 81 MG tablet 81 mg PO DAILY potassium chloride 20 MEQ tablet 20 meq PO DAILY Qty: 5 0RF lisinopril 40 mg tablet 40 mg PO DAILY Primary Care Provider: James Rizzo Referrals: James Rizzo MD [Primary Care Provider] - 3-5 Days if not improving Activity Restrictions/Additional Instructions: Plenty of fluids and rest to replace liquids loss by the diarrhea. Imodium for the diarrhea. If not improving follow-up your primary care physician Dr. James Rizzo. If you continue of diarrhea they need to get stool cultures. And have further evaluation. Your labs and CAT scan today were basically unremarkable. Print Language: Italian Disposition Disposition: Home, Self Care
[2024-05-17] MEDS: 0.9% Normal Saline (1000mL) 1,000 ML 999 ML IV (14:54)
[2024-05-17 15:02] LABS: Absolute Lymphocyte Count 1.32 X10^3/uL (0.83-4.51); Absolute Neutrophil Count 4.6 X10^3/uL (2.0-7.7); Basophil# 0.05 X10^3/uL; Basophil% 0.8 % (0-1); Eosinophil# 0.02 X10^3/uL; Eosinophils% 0.3 % (0-5); Hematocrit 47.1 % (40-54); Hemoglobin 15.2 g/dL (13.0-16.5); Lymphocyte # 1.32 X10^3/ul (0.83-4.51); Lymphocyte % 20.2 % (19-41); Mean Corp Hgb Conc 32.3 g/dL (32-36); Mean Corpuscular Hgb 26.5 pg (27.0-32.0); Mean Corpuscular Volume 82.2 fL (80-94); Mean Platelet Vol. 9.4 fl (6.2-12.0); Monocyte# 0.55 X10^3/uL; Monocyte% 8.4 % (0-10); NRBC Flagged by Analyzer 0 % (0-5); Neutrophil # 4.58 X10^3/uL (2.7-7.7); Platelet Count 282 K/mm3 (150-450); RBC Distribution Width SD 41.8 fl (35.1-43.9); Red Blood Count 5.73 M/mm3 (4.6-6.2); White Blood Count 6.5 K/mm3 (4.4-11.0)
[2024-05-17 15:23] LABS: ALB/GLOB Ratio 1.1 RATIO (0.9-2.4); AST(SGOT) 30 U/L (15-37); Alanine Aminotransfer ALT/SGPT 50 U/L (16-61); Albumin, Serum 4.1 g/dL (3.2-5.0); Alkaline Phosphatase 74 U/L (45-117); Anion Gap 7 (5-15); BUN 16 mg/dL (7-18); BUN/Creat Ratio 16.6 RATIO (10-20); Calcium,Total 9.9 mg/dL (8.5-10.1); Chloride 103 mmol/L (98-107); Creatinine, Serum 0.97 mg/dL (0.70-1.30); EST Glomerular Filtration Rate 84 mL/min (>60); Est Glom Filt Rate - Afr Amer 102 mL/min (>60); Globulin 3.8 g/dL (2.2-4.2); Glucose 125 mg/dL (74-106); Lipase 32 U/L (13-75); Potassium 3.6 mmol/L (3.5-5.1); Protein, Total 7.9 g/dL (6.4-8.2); Sodium Level 136 mmol/L (136-145)
[2024-05-17 15:38] VITALS: BP 112/64; PULSE 68; RESP 15; O2SAT 98
[2024-05-17 16:49] VITALS: BP 125/68; PULSE 66; RESP 16; TEMP 36.8; O2SAT 98
== END 2024-05-17 16:50 | disposition home or self-care (01) ==
PROVIDERS: Emergency Provider Emergency Medicine; PCP Family Medicine; Referring Provider Emergency Medicine; Visit Provider Emergency Medicine
DX: R19.7 Diarrhea, unspecified (principal); E11.9 Type 2 diabetes mellitus without complications; R10.9 Unspecified abdominal pain; R00.0 Tachycardia, unspecified; Z79.82 Long term (current) use of aspirin; Z79.899 Other long term (current) drug therapy
CPT/HCPCS: 74177; 80053; 83690; 85025; 96360; 99283; J7030; Q9967; A4216

== ENCOUNTER 2024-06-23 19:35 | Emergency (ER) | payer MEDICARE, SELFPAY ==
[2024-06-23 19:36] VITALS: BP 176/93; PULSE 97; RESP 18; TEMP 36.1; O2SAT 99; BMI 30.4
[2024-06-23 21:31] VITALS: RESP 16
--- NOTE | 2024-06-23 21:54 | EDS_ITS ---
HPI History of Present Illness Chief Complaint: Eye Problem Narrative Narrative: Chief complaint and HPI: Left eye vision changes. 59-year-old male with history of HTN, HLD, chronic back pain presents for evaluation of intermittent left eye visual changes. Patient states for the past 3 days he has been having intermittent changes in his left vision. He describes periodic floaters as well as an occasional flash of light. He does endorse some increased tearing of the left eye but denies any pain, swelling, redness, pruritus. Denies any eye drainage. Denies any injury to the eye. Denies any blurry or loss of vision. Denies any headache, fever, chills, ear pain, facial pain, numbness/tingling. Denies any trauma to the eye. Denies any rashes. Review of systems: See HPI Medications: As listed on the chart Allergies: As listed on the chart PFSH: Per chart Vital signs: As listed on the chart. Reviewed. Physical exam: Gen: A&O x3, NAD Head: Normocephalic, atraumatic Eye: No periorbital swelling or ecchymosis, no proptosis, no pain with extra ocular movements, EOMI intact, no lacerations or foreign bodies, no sclera chemosis or injection, no teardrop pupil, PERRL, no enophthalmos. Intraocular pressures were 18 R eye, 17 L eye. Visual Acuity: 20/20. Ultrasound of the bilateral eyes without any retinal detachment, vitreous hemorrhage, lens dislocation. Optic nerve sheath diameter normal. ENT: TMs clear BL, moist mucous membranes, posterior oropharynx unremarkable, no facial tenderness CV: Regular rate Resp: Nonlabored respirations Neuro: Alert, oriented, grossly intact, sensation intact Psych: Cooperative, appropriate mood and affect [facility] Medical History (Updated 06/23/24 @ 21:[address] Chilango Mercedes, DO) Prediabetes Hypertension Home Medications ?Medication ?Instructions ?Recorded ?Last Taken ?Type aspirin 81 mg tablet,delayed 81 mg PO DAILY HEART HEALTH 07/27/18 07/27/18 History release lisinopril 40 mg tablet 40 mg PO DAILY 05/17/24 Unknown History Allergy/AdvReac Type Severity Reaction Status Date / Time amoxicillin Allergy Rash Verified 06/23/24 19:36 tramadol Allergy Other Verified 06/23/24 19:36 diphenhydramine (From AdvReac Other Verified 06/23/24 19:36 Benadryl) gabapentin AdvReac Other Verified 06/23/24 19:36 Opioids - Morphine Analogues AdvReac Other Verified 06/23/24 19:36 prochlorperazine (From AdvReac Other Verified 06/23/24 19:36 Compazine) Surgical History H/O hernia repair Hx of cholecystectomy Social History Smoking Status: Never smoker alcohol intake: never substance use type: does not use what type of physical activity do you participate in: none and walking frequency: 5-6 times per week EXAM Physical Exam Const Vital Signs: 06/23/24 19:36 06/23/24 21:31 Temperature 97 F L Temperature Source Temporal Pulse Rate 97 Respiratory Rate 18 16 Blood Pressure 176/93 H Blood Pressure Mean 120 Pulse Ox 99 Oxygen Delivery Method Room Air MDM MDM MDM Narrative Medical decision making narrative: 59-year-old male presents for evaluation of intermittent left eye vision changes. He describes intermittent floaters as well as an occasional bright light that disappears. Physical exam unremarkable. No clear etiology for patient's intermittent vision changes. No signs of infection or trauma to the eye. Eye is not painful. I do not think any imaging is needed at this time. I do not feel that the patient requires any emergent ophthalmology evaluation. Patient was educated that he needs to follow-up with his eye doctor. He confirmed understanding. Return precautions were explained. He was told to follow-up with his PCP for his hypertension. He confirmed understanding. Patient is stable to discharge home. Impression: 1. Left eye floaters Discharge Plan Triage Chief Complaint: Eye Problem ED Provider: Chilango Mercedes Dx/Rx/DC Orders Clinical Impression: Eye abnormality Instructions: Understanding Vision Problems Prescriptions: No Action aspirin 81 MG tablet 81 mg PO DAILY lisinopril 40 mg tablet 40 mg PO DAILY Primary Care Provider: James Rizzo Referrals: James Rizzo MD [Primary Care Provider] - 3-5 Days Karie Martinez MD [Med Staff - Active Staff] - Activity Restrictions/Additional Instructions: Follow-up with your eye doctor soon as possible. If you are unable to get in quickly follow-up with the drafter structural listed above. Return back if symptoms worsen or change Print Language: Trinidadian Disposition Disposition: Home, Self Care Discharge Date/Time: 06/23/24 21:33
== END 2024-06-23 21:33 | disposition home or self-care (01) ==
PROVIDERS: Emergency Provider Surgery; PCP Family Medicine; Referring Provider Surgery; Visit Provider Surgery
DX: H43.392 Other vitreous opacities, left eye (principal); I10 Essential (primary) hypertension; E78.5 Hyperlipidemia, unspecified; R73.03 Prediabetes; Z79.82 Long term (current) use of aspirin; Z79.899 Other long term (current) drug therapy
CPT/HCPCS: 99282

== ENCOUNTER 2024-06-25 11:57 | Emergency (ER) | payer MEDICARE, SELFPAY ==
[2024-06-25 11:59] VITALS: BP 183/99; PULSE 109; RESP 16; TEMP 36.8; O2SAT 99
--- NOTE | 2024-06-25 12:14 | EKG12_ITS ---
Test Reason : Blood Pressure : / mmHG Vent. Rate : 090 BPM Atrial Rate : 090 BPM P-R Int : 146 ms QRS Dur : 090 ms QT Int : 350 ms P-R-T Axes : 051 059 006 degrees QTc Int : 428 ms Normal sinus rhythm Nonspecific T wave abnormality Abnormal ECG Confirmed by GRUPO WATERS, DIANA ([id number]), editor trade journal NOAH PUTNAM ([id number]) on 06/26/2024 8:43:53 AM Referred By: LESLYE Confirmed By:DIANA LOMBARDO MD
[2024-06-25 12:24] LABS: Bedside Glucose 119 mg/dL (74-106)
[2024-06-25 12:24] LABS: Absolute Neutrophil Count 4.2 X10^3/uL (2.0-7.7); Basophil# 0.06 X10^3/uL; Basophil% 0.9 % (0-1); Eosinophils% 1.5 % (0-5); Hematocrit 50.1 % (40-54); Hemoglobin 15.7 g/dL (13.0-16.5); Lymphocyte % 29.4 % (19-41); Mean Corp Hgb Conc 31.3 g/dL (32-36); Mean Corpuscular Hgb 26.6 pg (27.0-32.0); Mean Corpuscular Volume 84.8 fL (80-94); Mean Platelet Vol. 9.7 fl (6.2-12.0); Monocyte# 0.48 X10^3/uL; NRBC Flagged by Analyzer 0 % (0-5); Neutrophil # 4.15 X10^3/uL (2.7-7.7); Neutrophil % 60.9 % (47-70); Platelet Count 290 K/mm3 (150-450); RBC Distribution Width CV 14.3 % (11.6-14.6); RBC Distribution Width SD 44.2 fl (35.1-43.9); Red Blood Count 5.91 M/mm3 (4.6-6.2); White Blood Count 6.8 K/mm3 (4.4-11.0)
--- NOTE | 2024-06-25 12:30 | RAD_ITS ---
STUDY: X-RAY CHEST REASON FOR EXAM: Male, 59 years old. Stroke TECHNIQUE: Single AP portable view of the chest. COMPARISON: 08/23/2019 FINDINGS: The lungs are clear and expanded. Elevated right hemidiaphragm which is unchanged. Normal size heart. Normal mediastinum and emir. Normal visualized pulmonary arteries. Normal visualized aortic arch and descending thoracic aorta. Normal visualized thoracic spine. Normal visualized ribs, clavicles, and shoulders. There is no demonstrated abnormality of the visualized soft tissue structures of the upper abdomen. RAD/Chest 1 View (Portable) IMPRESSION: No active disease. Electronically Signed: Francisco Souza MD at 12:59 EDT ,
[2024-06-25 12:37] LABS: Anion Gap 8 (5-15); BUN 15 mg/dL (7-18); BUN/Creat Ratio 16.5 RATIO (10-20); Calcium,Total 9.8 mg/dL (8.5-10.1); Chloride 104 mmol/L (98-107); Creatinine, Serum 0.91 mg/dL (0.70-1.30); EST Glomerular Filtration Rate 90 mL/min (>60); Est Glom Filt Rate - Afr Amer 109 mL/min (>60); Glucose 126 mg/dL (74-106); Potassium 3.8 mmol/L (3.5-5.1); Sodium Level 138 mmol/L (136-145)
[2024-06-25 12:40] LABS: Partial Thromboplast Time 29.2 Seconds (24.1-36.2); Prothrombin Time (Protime)PT. 12.7 SECONDS (11.7-14.9)
[2024-06-25 12:46] VITALS: BMI 30.9
[2024-06-25 12:58] VITALS: BP 146/76; PULSE 92; RESP 16; O2SAT 99
--- NOTE | 2024-06-25 13:07 | EDS_ITS ---
HPI History of Present Illness Chief Complaint: Vision Prob Detail of Chief Complaint: Visual disturbance of left eye only Informant: patient Onset/Context/Timing Location: Left Eye Onset: Today and Hours Context: Sudden Onset Timing: Continuous Current Severity: Mild Maximum Severity: Mild Worsened by: Nothing Relieved by: Nothing Associated Symptoms Associated Symptoms - Eyes: - (Complains of a brown swirling left eye) Visual Changes: left: Blurred vision and Floaters History of injury: No Visual correction: None Narrative Narrative: Patient is a 59-year-old male. He was seen on June 23. He had an extensive eye exam by the physician including an ultrasound of his eye which was unremarkable. Intraocular pressure was unremarkable. He states he has an appointment to see Dr. Rosenbaum tomorrow. He presents now because of a brown swirling visual disturbance that has affected his left eye only. There is no history of trauma. He denies pain. He has had dental work within the past month. He denies fever, chills night sweats. He denies any visual disturbance in the right eye. He denies trouble with balance or coordination. Prior similar symptoms: Yes Recent Illness/Hospitalization: Yes [facility] Medical History Prediabetes Hypertension Home Medications ?Medication ?Instructions ?Recorded ?Last Taken ?Type aspirin 81 mg tablet,delayed 81 mg PO DAILY HEART HEALTH 07/27/18 07/27/18 History release lisinopril 40 mg tablet 40 mg PO DAILY 05/17/24 Unknown History Allergy/AdvReac Type Severity Reaction Status Date / Time amoxicillin Allergy Rash Verified 06/25/24 12:02 tramadol Allergy Other Verified 06/25/24 12:02 diphenhydramine (From AdvReac Other Verified 06/25/24 12:02 Benadryl) gabapentin AdvReac Other Verified 06/25/24 12:02 Opioids - Morphine Analogues AdvReac Other Verified 06/25/24 12:02 prochlorperazine (From AdvReac Other Verified 06/25/24 12:02 Compazine) Surgical History H/O hernia repair Hx of cholecystectomy Social History Smoking Status: Never smoker alcohol intake: never substance use type: does not use what type of physical activity do you participate in: none and walking frequency: 5-6 times per week ROS ROS ED Constitutional Constitutional ED: Denies chills, fever(s) or subjective Eyes Eyes: Reports blurry vision left, change in vision left and other Details: Patient denies any visual loss of any type. Patient denies ; Denies diplopia ENT ENT ED: Denies ear pain or rhinorrhea Cardiovascular Cardiovascular: Denies chest pain Gastrointestinal Gastrointestinal: Denies nausea or vomiting Hematologic/Lymphatic Hematologic/Lymphatic: Denies easy bleeding or easy bruising EXAM Physical Exam Const Vital Signs: 06/25/24 11:59 Temperature 98.2 F Temperature Source Oral Pulse Rate 109 H Respiratory Rate 16 Blood Pressure 183/99 H Blood Pressure Mean 127 Pulse Ox 99 Oxygen Delivery Method Room Air Positive well nourished and well developed General Appearance ED: well developed and NAD HEENT HEENT Narrative: . Ears are normal. Posterior pharynx is normal. atraumatic; Negative for tenderness Nose: external nose normal and nares normal Eyes Eyes Narrative: Pupils equal round reactive to light and accommodation. Extraocular muscles are intact. There is no APD. Cup-to-disc ratio and optic disc are normal on the right. Unable to visualize the optic nerve on the left. Difficulty seeing vessels as well. There is a reddish discoloration of the posterior chamber with direct ophthalmic exam. Visual acuity is 20/20 right eye and 20/50 left eye. This is a change from June 23. Neck no lymphadenopathy, supple and no JVD Resp normal respiratory effort, no retractions and clear to auscultation bilaterally Cardio regular rate, regular rhythm, S1 normal heart sound, S2 normal heart sound and no murmurs Neuro oriented x3, CN's II-XII intact bilaterally and moves all extremities Neuro Narrative: Gait observed and normal. Sensorium / Orientation: alert Skin no wounds Lesions: no lesions Rashes: no rashes MDM MDM MDM Narrative Medical decision making narrative: Nurse protocol orders were entered. Some of these were canceled. Call was placed to Dr. Rosenbaum's office. Presently no ones in the office because of lunch. A message was left. In my opinion needs indirect exam by ophthalmology to determine if there is a retinal tear or significant hemorrhage. Lab Data Labs: Laboratory Results - last 24 hr 06/25/24 06/25/24 12:06 12:15 WBC 6.8 RBC 5.91 Hgb 15.7 Hct 50.1 MCV 84.8 MCH 26.6 L MCHC 31.3 L RDW Std Deviation 44.2 H RDW Coeff of Malu 14.3 Plt Count 290 MPV 9.7 Immature Gran % (Auto) 0.300 Neut % (Auto) 60.9 Lymph % (Auto) 29.4 [place] % (Auto) 7.0 Eos % (Auto) 1.5 Baso % (Auto) 0.9 Absolute Neuts (auto) 4.2 Absolute Lymphs (auto) 2.00 Nucleated RBC % 0 PT 12.7 INR 1.0 APTT 29.2 Sodium 138 Potassium 3.8 Chloride 104 Carbon Dioxide 26.0 Anion Gap 8 BUN 15 Creatinine 0.91 Est GFR (MDRD) Af Amer 109 Est GFR (MDRD) Non-Af 90 BUN/Creatinine Ratio 16.5 Glucose 126 H Calcium 9.8 POC Glucose 119 H Radiography Diagnostic Testing: Clinical Impression(s) from Imaging Studies Chest X-Ray 06/25/24 12:30 IMPRESSION: No active disease. Electronically Signed: Francisco Souza MD at 12:59 EDT , EKG Initial EKG: Attestation: I personally reviewed and interpreted this EKG as follows: Interpretation: Sinus Rhythm (Rate is 90. The EKG is normal. Computer is reading ST abnormality, which is actually artifact. CO interval is 146 ms. Cures duration 90 ms QT is 350 ms. [place] is normal.) Treatment and Re-Evaluation Narrative: Spoke with Dr. Rosenbaum's office staff. There is an open at 2:00. They will like patient discharged now to be seen at 2:00 Discharge Plan Triage Chief Complaint: Vision Prob ED Provider: Andrew Romeo Dx/Rx/DC Orders Clinical Impression: Blurred vision, left eye, Benign essential HTN, Nondiabetic hyperglycemia Prescriptions: No Action aspirin 81 MG tablet 81 mg PO DAILY lisinopril 40 mg tablet 40 mg PO DAILY Primary Care Provider: James Rizzo Referrals: James Rizzo MD [Primary Care Provider] - Activity Restrictions/Additional Instructions: Go directly to Dr. Horta's office for a 2:00 appointment Print Language: Irish Disposition Disposition: Home, Self Care
[2024-06-25 13:51] VITALS: BP 149/76; PULSE 81; RESP 14; TEMP 36.6; O2SAT 98
== END 2024-06-25 13:53 | disposition home or self-care (01) ==
PROVIDERS: Emergency Provider Emergency Medicine; PCP Family Medicine; Visit Provider Emergency Medicine
DX: H53.8 Other visual disturbances (principal); H43.392 Other vitreous opacities, left eye; R73.9 Hyperglycemia, unspecified; I10 Essential (primary) hypertension; Z79.82 Long term (current) use of aspirin; Z79.899 Other long term (current) drug therapy
CPT/HCPCS: 71045; 80048; 82962; 85025; 85610; 85730; 93005; 99284; A4216

== ENCOUNTER 2024-09-16 16:26 | Emergency (ER) | payer MEDICARE, SELFPAY ==
[2024-09-16 16:27] VITALS: BP 203/105; PULSE 121; RESP 22; TEMP 36.6; O2SAT 99; BMI 30.9
--- NOTE | 2024-09-16 16:43 | EX.ED.DYSGE1 ---
HPI History of Present Illness Chief Complaint: Hypertension PFSH PFS Medical History (Updated 09/16/24 @ 18:[address] Mark Aparicio, DO) Anxiety BPH (benign prostatic hyperplasia) DDD (degenerative disc disease) Spinal stenosis Chronic low back pain IBS (irritable bowel syndrome) HLD (hyperlipidemia) Prediabetes Hypertension Home Medications ?Medication ?Instructions ?Recorded ?Last Taken ?Type aspirin 81 mg tablet,delayed 81 mg PO DAILY HEART HEALTH 07/27/18 07/27/18 History release lisinopril 40 mg tablet 40 mg PO DAILY 05/17/24 Unknown History metformin 500 mg tablet,extended 500 mg PO BID 09/16/24 Unknown History release 24 hr metoclopramide HCl 5 mg tablet 5 mg PO Q8H PRN PRN headache 3 09/16/24 Unknown Rx (Reglan) days #12 tabs rosuvastatin 10 mg tablet 10 mg PO QHS 09/16/24 Unknown History Allergy/AdvReac Type Severity Reaction Status Date / Time amoxicillin Allergy Rash Verified 09/16/24 17:04 tramadol Allergy Other Verified 09/16/24 17:04 diphenhydramine (From AdvReac Other Verified 09/16/24 17:04 Benadryl) gabapentin AdvReac Other Verified 09/16/24 17:04 Opioids - Morphine Analogues AdvReac Other Verified 09/16/24 17:04 prochlorperazine (From AdvReac Other Verified 09/16/24 17:04 Compazine) Family History (Updated 09/16/24 @ 17:[address] Smiley Leon MD) Mother Diabetes Hypertension Bladder cancer Father Diabetes CAD (coronary artery disease) Heart disease Hypertension Myocardial infarction Prostate cancer Dementia Surgical History H/O hernia repair Hx of cholecystectomy Social History (Updated 09/16/24 @ 17:[address] Smiley Leon MD) household members: spouse Smoking Status: Never smoker alcohol intake: never substance use type: does not use what type of physical activity do you participate in: none and walking frequency: 5-6 times per week EXAM Physical Exam Const Vital Signs: 09/16/24 16:27 09/16/24 17:03 09/16/24 17:30 Temperature 97.9 F Temperature Source Temporal Pulse Rate 121 H Respiratory Rate 22 H Respiratory Effort Normal Respiratory Pattern Normal Blood Pressure 203/105 H 161/89 H Blood Pressure Mean 137 113 Pulse Ox 99 Oxygen Delivery Method Room Air 09/16/24 18:00 09/16/24 18:12 09/16/24 18:16 Temperature Temperature Source Pulse Rate 81 81 81 Respiratory Rate 16 14 18 Respiratory Effort Respiratory Pattern Blood Pressure 174/96 H 133/83 H 161/97 H Blood Pressure Mean 122 99 118 Pulse Ox 96 97 96 Oxygen Delivery Method Room Air Room Air Room Air 09/16/24 18:21 Temperature 97.7 F L Temperature Source Pulse Rate 81 Respiratory Rate 17 Respiratory Effort Respiratory Pattern Blood Pressure 161/97 H Blood Pressure Mean 118 Pulse Ox 97 Oxygen Delivery Method MDM MDM MDM Narrative Medical decision making narrative: HISTORY OF PRESENT ILLNESS: 59-year-old male here for headache, elevated blood pressure. States he has had a cold for the last couple of days. Notes head congestion. Headache. Denies focal weakness, numbness, slurred speech, loss of vision. Denies any falls or head trauma. Patient denies sudden onset or thunderclap headache, denies maximal intensity within 1 minute, vomiting, neck pain, stiffness, changes in vision, fever, history malignancy, syncope, or seizures associated with headache. Denies any chest pain, shortness of breath, leg swelling or decreased urination. REVIEW OF SYSTEMS: Pertinent positives: Headache, elevated blood pressure Pertinent negatives: Vomiting, chest pain, focal weakness PHYSICAL EXAM: Nursing triage notes reviewed, Vital signs reviewed Constitutional: please see mdm HENT: MMM Eyes: Pupils equal round and reactive to light, Extraocular muscles intact Neck: No stridor, no JVD, full neck ROM Lungs: Clear to auscultation, No wheezing or rales. No increased work of breathing, no conversational dyspnea, no accessory muscle use, no nasal flaring. No respiratory distress noted Heart: Regular rate and rhythm, No murmurs, No rubs and No gallops, 2+ distal pulses (radial, femoral, posterior tibial) in all extremities Abdomen: Soft, there is no tenderness, rigidity, rebound or guarding, no obvious peritoneal signs, no palpable pulsatile abdominal masses, no auscultated abdominal bruit : No CVAT Extremities: No edema Neuro: Alert and oriented x3, neuro exam at baseline, cranial nerves II through XII are intact. No pain with extraocular muscle movement. There is negative test of skew. 5 of 5 strength in upper and lower extremities in flexion extension. Intact sensation to light touch in upper and lower extremity dermatomes. No truncal or extremity ataxia. No dysdiadochokinesia. Normal gait. 2+ reflexes in upper and lower extremities. No meningeal signs. Negative Babinski. NIH of 0. Skin: No rash or lesions noted MEDICAL DECISION MAKING: Chief Complaint: Headache, elevated blood pressure External records reviewed: Reviewed prior allergies, current medications, problem list, Factors affecting care: Hypertension, hyperlipidemia, ulcerative colitis Social determinants of health: none History obtained from others: none Consults: none [facility] Narrative: The patient was initially hypertensive with blood pressure 150095, tachycardic with a heart rate of 121, tachypneic with respiratory 22, afebrile and saturating 9 9 % room air. I considered the following differential diagnosis: ICH, CHF, ACS, heart failure, renal dysfunction Initial observation oral Tylenol and Reglan however he refused medications at this time. ALL IMAGES (IF OBTAINED) HAVE BEEN PERSONALLY REVIEWED AND INTERPRETED BY MYSELF. EKG with normal start rhythm, normal axis, normal intervals, no STEMI High-sensitivity troponin is negative, no evidence of myocardial ischemia CBC without leukocytosis, severe anemia, no thrombocytopenia. BMP without evidence of significant electrolyte abnormalities, no anion gap, no acute kidney injury. I have personally reviewed the patient's chest x-ray. Chest x-ray is unremarkable for pulmonary edema, pneumothorax, pneumonia or focal cardiopulmonary abnormality. Radiologist agrees my interpretation. CT scan head was negative for ICH or mass Upon reevaluation patient's vital signs completely improved. His blood pressure was 133/83, heart rate is 81, respirate 14, he remained afebrile, saturating well on room air. Repeat neurologic exam remained intact. Offered additional blood pressure control in the form of hydrochlorothiazide and Norvasc but the patient refused. Instructed patient on diet exercise remedies to control blood pressure. Patient stated his diet contains no salt. He also stated he exercises plenty. The patient is appropriate for discharge home. The patient and/or family, caregivers express understanding. The patient and/or family, caregivers agrees with the plan. Shared decision making: I will have a discussion with the patient and or visitors regarding risk/benefits of further testing or admission. They will be made aware of of the risk/benefits inherent in this decision they will be given the opportunity to voice understanding. Total critical care time today provided was at least 0 minutes. This excludes separately billable procedures. Critical care time (if documented) is secondary to the patient having high probability of clinically significant/life threatening deterioration in the patient's condition which required my urgent intervention. Impression: 1. Elevated blood pressure 2. Headache Dispo: Discharge home This note was generated with [employer] dictation software. It may contain incorrect words, spelling, and punctuation that were not noted in review of the chart prior to signing. Lab Data Labs: Laboratory Results - last 24 hr 09/16/24 17:05 WBC 6.6 RBC 5.62 Hgb 14.9 Hct 46.1 MCV 82.0 MCH 26.5 L MCHC 32.3 RDW Std Deviation 40.6 RDW Coeff of Malu 13.6 Plt Count 332 MPV 9.2 Sodium 138 Potassium 4.0 Chloride 105 Carbon Dioxide 27.0 Anion Gap 6 BUN 14 Creatinine 0.81 Estim Creat Clear Calc 113.74 Est GFR (MDRD) Af Amer 125 Est GFR (MDRD) Non-Af 103 BUN/Creatinine Ratio 17.3 Glucose 178 H Calcium 9.4 Troponin I High Sens < 3 L Radiography Diagnostic Testing: Clinical Impression(s) from Imaging Studies Brain CT 09/16/24 16:58 IMPRESSION: No evidence of acute intraparenchymal bleed, mass or ischemia. Electronically Signed: Lamin Avila, at 17:33 EST , Chest X-Ray 09/16/24 17:18 IMPRESSION: No evidence of acute cardiopulmonary process. Electronically Signed: Lamin Avila at 17:33 EST , Discharge Plan Triage Chief Complaint: Hypertension ED Provider: Mark Aparicio Dx/Rx/DC Orders Clinical Impression: Elevated blood pressure reading, Headache Instructions: ED High Blood Pressure Hypertension Prescriptions: New metoclopramide HCl [Reglan] 5 mg tablet 5 mg PO Q8H PRN PRN (Reason: headache) 3 Days Qty: 12 0RF No Action aspirin 81 MG tablet 81 mg PO DAILY lisinopril 40 mg tablet 40 mg PO DAILY metformin 500 mg tablet extended release 24 hr 500 mg PO BID rosuvastatin 10 mg tablet 10 mg PO QHS Primary Care Provider: James Rizzo Referrals: James Rizzo MD [Primary Care Provider] - Activity Restrictions/Additional Instructions: Thank you for trusting us with your care today! Please take Tylenol (2 pills, 650 mg), ibuprofen (2 pills, 400 mg) every 6 hours as needed for pain and fever control. Please take Reglan as needed for headache or nausea control. Please return to the emergency department if your symptoms change or worsen. Please follow with your primary care physician for further outpatient evaluation and management. Print Language: Swedish Disposition Disposition: Home, Self Care Discharge Date/Time: 09/16/24 18:35
--- NOTE | 2024-09-16 16:58 | CT_ITS ---
STUDY: CT BRAIN WITHOUT CONTRAST REASON FOR EXAM: Male, 59 years old. headache RADIATION DOSAGE (If Supplied By Facility): CTDIvol = ( 44.99 ) mGy, DLP = ( 812.98 ) mGycm TECHNIQUE: Transaxial CT imaging of the brain was performed without administration of intravenous contrast material. Individualized dose optimization techniques were used for this CT. COMPARISON: 07/22/2018 CT head FINDINGS: Normal soft tissue structures. Normal calvarium. There is mild cerebral atrophy with widening of the extra-axial spaces and ventricular dilatation. There are areas of decreased attenuation within the white matter tracts of the supratentorial brain, consistent with microvascular disease changes. Normal basal ganglia and thalami. Normal brainstem. Normal cerebellum. There is no intracranial hemorrhage. There are no findings of an acute ischemic infarction. Normal visualized paranasal sinuses. CT/Brain/Head without Contrast IMPRESSION: No evidence of acute intraparenchymal bleed, mass or ischemia. Electronically Signed: Lamin Avila, at 17:33 EST ,
--- NOTE | 2024-09-16 16:58 | EKG12_ITS ---
Test Reason : GENERAL Blood Pressure : */* mmHG Vent. Rate : 76 BPM Atrial Rate : 76 BPM P-R Int : 156 ms QRS Dur : 96 ms QT Int : 392 ms P-R-T Axes : 43 44 48 degrees QTcB Int : 441 ms Normal sinus rhythm Nonspecific T wave abnormality Abnormal ECG Confirmed by DIANA LOMBARDO MD ([id number]), commissioning editor NOAH PUTNAM ([id number]) on 09/17/2024 8:25:18 AM Referred By: Confirmed By: DIANA LOMBARDO MD
[2024-09-16] MEDS: Acetaminophen 325 MG Tablet 650 MG PO (17:07)
--- NOTE | 2024-09-16 17:18 | RAD_ITS ---
STUDY: X-RAY CHEST REASON FOR EXAM: Male, 59 years old. elevated BP, cough TECHNIQUE: Single AP portable view of the chest. COMPARISON: 06/25/2024 FINDINGS: The lungs are clear and expanded. There is no demonstrated pleural abnormality. Normal size heart. Normal mediastinum and emir. Normal visualized pulmonary arteries. Normal visualized aortic arch and descending thoracic aorta. Normal visualized thoracic spine. Normal visualized ribs, clavicles, and shoulders. There is no demonstrated abnormality of the visualized soft tissue structures of the upper abdomen. RAD/Chest 1 View (Portable) IMPRESSION: No evidence of acute cardiopulmonary process. Electronically Signed: Lamin Austin, at 17:33 EST ,
[2024-09-16 17:21] LABS: Hematocrit 46.1 % (40-54); Hemoglobin 14.9 g/dL (13.0-16.5); Mean Corp Hgb Conc 32.3 g/dL (32-36); Mean Corpuscular Hgb 26.5 pg (27.0-32.0); Mean Platelet Vol. 9.2 fl (6.2-12.0); Platelet Count 332 K/mm3 (150-450); RBC Distribution Width CV 13.6 % (11.6-14.6); RBC Distribution Width SD 40.6 fl (35.1-43.9); Red Blood Count 5.62 M/mm3 (4.6-6.2); White Blood Count 6.6 K/mm3 (4.4-11.0)
[2024-09-16 17:30] VITALS: BP 161/89
[2024-09-16 17:52] LABS: Anion Gap 6 (5-15); BUN 14 mg/dL (7-18); BUN/Creat Ratio 17.3 RATIO (10-20); Calcium,Total 9.4 mg/dL (8.5-10.1); Chloride 105 mmol/L (98-107); Creatinine, Serum 0.81 mg/dL (0.70-1.30); EST Glomerular Filtration Rate 103 mL/min (>60); Est Glom Filt Rate - Afr Amer 125 mL/min (>60); Estimated Creatinine Clearance 113.74 ml/min; Glucose 178 mg/dL (74-106); Sodium Level 138 mmol/L (136-145); Troponin-I HS < 3 pg/mL (3.0-78.0)
[2024-09-16 18:00] VITALS: BP 174/96; PULSE 81; RESP 16; O2SAT 96
[2024-09-16 18:12] VITALS: BP 133/83; PULSE 81; RESP 14; O2SAT 97
[2024-09-16 18:16] VITALS: BP 161/97; PULSE 81; RESP 18; O2SAT 96
[2024-09-16 18:21] VITALS: BP 161/97; PULSE 81; RESP 17; TEMP 36.5; O2SAT 97
--- NOTE | 2024-09-16 18:32 | ED.RN ---
THIS NURSE WENT IN TO DISCHARGE TO D/C PT. DR LONGORIA HAS JUST WENT OVER VERBAL D/C ORDERS AND RESULTS WITH PT AND SPOUSE. WHEN THIS NURSE WALKED IN THE PT AND HIS SPOUSE WERE UPSET THAT DR LONGORIA ADVISED HIM TO REDUCE SALT INTAKE, INCREASE WALKING AND EXERCISE TO FLOOR MECHANIC IN THE LOWERING OF HIS BP. I ADVISED THE PT AND HIS THAT THOSE ARE THINGS WE WANT TO ALWAYS ENCOURAGE AND EDUCATED PT AND SPOUSE ON HOW MUCH SALT IS HIDDEN IN THE FOODS WE EAT EVEN IF WE ARE NOT ADDING TABLE SALT TO OUR DISHES. PT AND HIS SPOUSE SEEMED TO CALM DOWN AND BE UNDERSTANDING THAT DR CALL WAS ONLY TRYING TO HELP WITH EDUCATION ON WAYS TO HELP AND TO FOLLOW UP WITH PCP.
== END 2024-09-16 18:35 | disposition home or self-care (01) ==
PROVIDERS: Emergency Provider Emergency Medicine; PCP Family Medicine; Visit Provider Emergency Medicine
DX: I10 Essential (primary) hypertension (principal); K51.90 Ulcerative colitis, unspecified, without complications; R51.9 Headache, unspecified; E78.5 Hyperlipidemia, unspecified; N40.0 Benign prostatic hyperplasia without lower urinary tract symptoms; R73.03 Prediabetes; Z79.899 Other long term (current) drug therapy; Z79.82 Long term (current) use of aspirin; Z79.84 Long term (current) use of oral hypoglycemic drugs
CPT/HCPCS: 70450; 71045; 80048; 84484; 85027; 93005; 99284; A4216

== ENCOUNTER 2024-10-28 17:44 | Emergency (ER) | payer MEDICARE, SELFPAY ==
[2024-10-28] VITALS (7 sets, daily range): BP systolic 133–196; BP diastolic 80–166; PULSE 66–145; RESP 17–30; TEMP 36.3–37; O2SAT 96–100; BMI 30.8
--- NOTE | 2024-10-28 18:16 | EKG12_ITS ---
Test Reason : SOB Blood Pressure : */* mmHG Vent. Rate : 73 BPM Atrial Rate : 73 BPM P-R Int : 156 ms QRS Dur : 92 ms QT Int : 392 ms P-R-T Axes : 38 44 3 degrees QTcB Int : 431 ms Normal sinus rhythm Normal ECG Confirmed by GRUPO WATERS, DIANA ([id number]), business editor NOAH PUTNAM ([id number]) on 10/29/2024 8:27:04 AM Referred By: Confirmed By: DIANA LOMBARDO MD
[2024-10-28 18:35] LABS: Absolute Lymphocyte Count 3.15 X10^3/uL (0.83-4.51); Absolute Neutrophil Count 5.1 X10^3/uL (2.0-7.7); Basophil# 0.06 X10^3/uL; Basophil% 0.7 % (0-1); Eosinophil# 0.08 X10^3/uL; Eosinophils% 0.9 % (0-5); Hematocrit 50.6 % (40-54); Hemoglobin 16.1 g/dL (13.0-16.5); Lymphocyte # 3.15 X10^3/ul (0.83-4.51); Mean Corp Hgb Conc 31.8 g/dL (32-36); Mean Corpuscular Hgb 26.5 pg (27.0-32.0); Mean Corpuscular Volume 83.4 fL (80-94); Mean Platelet Vol. 9.2 fl (6.2-12.0); Monocyte# 0.63 X10^3/uL; NRBC Flagged by Analyzer 0 % (0-5); Neutrophil # 5.06 X10^3/uL (2.7-7.7); Neutrophil % 56.3 % (47-70); Platelet Count 365 K/mm3 (150-450); RBC Distribution Width CV 14.1 % (11.6-14.6); RBC Distribution Width SD 42.5 fl (35.1-43.9); Red Blood Count 6.07 M/mm3 (4.6-6.2)
--- NOTE | 2024-10-28 18:40 | RAD_ITS ---
PROCEDURE: CHEST PA AND LATERAL REASON FOR EXAM: Chest pain radiating down left arm TECHNIQUE: Frontal and lateral views of the chest. COMPARISON: Chest portable dated 09/16/2024 FINDINGS: Cardiac monitoring leads overlie the chest wall. The heart size is normal. No mediastinal widening. No hilar masses. Lungs are clear of pneumonia and congestion. Mild elevation of the right hemidiaphragm. Spondylosis. RAD/Chest PA and Lateral IMPRESSION: No active cardiopulmonary disease. Reading Location: [facility]
[2024-10-28 18:56] LABS: AST(SGOT) 17 U/L (15-37); Alanine Aminotransfer ALT/SGPT 28 U/L (16-61); Albumin, Serum 4.3 g/dL (3.2-5.0); Alkaline Phosphatase 68 U/L (45-117); Anion Gap 9 (5-15); BUN 18 mg/dL (7-18); Calcium,Total 9.5 mg/dL (8.5-10.1); Chloride 103 mmol/L (98-107); Creatinine, Serum 1.06 mg/dL (0.70-1.30); EST Glomerular Filtration Rate 76 mL/min (>60); Est Glom Filt Rate - Afr Amer 91 mL/min (>60); Estimated Creatinine Clearance 86.75 ml/min; Globulin 4.2 g/dL (2.2-4.2); Glucose 112 mg/dL (74-106); Potassium 3.6 mmol/L (3.5-5.1); Protein, Total 8.5 g/dL (6.4-8.2); Sodium Level 135 mmol/L (136-145)
--- NOTE | 2024-10-28 20:52 | EX.ED.DYSGE1 ---
HPI History of Present Illness Chief Complaint: Edema Informant: patient Narrative Narrative: Patient is a 59-year-old male with history of hypertension, diabetes mellitus (he reports prediabetes and is on metformin) and hyperlipidemia presenting with feeling of throat swelling and difficulty swallowing. He states that him and his both had URI symptoms for the past few weeks. He notes that his throat recently has felt very dry and has been uncomfortable to swallow. He is not feeling there is almost a foreign body sensation in the back of his throat and his throat feels tight. This been going on intermittently for the past 2 3 days. He states he is also feeling lightheaded. Denies any fever. Denies any significant cough. I did go to urgent care earlier this week that recommended Coricidin and thought maybe his symptoms were from drainage. Was also recently increased on his lisinopril dosage by his primary care doctor and is not sure if this is related. No other complaints or concerns reported at this time [facility] Medical History Anxiety BPH (benign prostatic hyperplasia) DDD (degenerative disc disease) Spinal stenosis Chronic low back pain IBS (irritable bowel syndrome) HLD (hyperlipidemia) Prediabetes Hypertension Home Medications ?Medication ?Instructions ?Recorded ?Last Taken ?Type aspirin 81 mg tablet,delayed 81 mg PO DAILY HEART HEALTH 07/27/18 07/27/18 History release lisinopril 40 mg tablet 30 mg PO BID 05/17/24 Unknown History metformin 500 mg tablet,extended 500 mg PO BID 09/16/24 Unknown History release 24 hr metoclopramide HCl 5 mg tablet 5 mg PO Q8H PRN PRN headache 3 09/16/24 Unknown Rx (Reglan) days #12 tabs rosuvastatin 10 mg tablet 10 mg PO QHS 09/16/24 Unknown History Allergy/AdvReac Type Severity Reaction Status Date / Time amoxicillin Allergy Rash Verified 10/28/24 17:53 tramadol Allergy Other Verified 10/28/24 17:53 diphenhydramine (From AdvReac Other Verified 10/28/24 17:53 Benadryl) gabapentin AdvReac Other Verified 10/28/24 17:53 Opioids - Morphine Analogues AdvReac Other Verified 10/28/24 17:53 prochlorperazine (From AdvReac Other Verified 10/28/24 17:53 Compazine) Family History Mother Diabetes Hypertension Bladder cancer Father Diabetes CAD (coronary artery disease) Heart disease Hypertension Myocardial infarction Prostate cancer Dementia Surgical History H/O hernia repair Hx of cholecystectomy Social History household members: spouse housing: house Smoking Status: Never smoker alcohol intake: never substance use type: does not use what type of physical activity do you participate in: none and walking frequency: 5-6 times per week ROS ROS ED Constitutional Constitutional ED: Denies chills or fever(s) Eyes Eyes: Denies change in vision ENT ENT ED: Reports sore throat and other Details: Difficulty swallowing, foreign body sensation ; Denies ear pain or rhinorrhea Cardiovascular Cardiovascular: Denies chest pain Respiratory/Chest Respiratory/Chest: Reports cough; Denies dyspnea Gastrointestinal Gastrointestinal: Denies abdominal pain or vomiting Musculoskeletal Musculoskeletal: Denies myalgias Neurologic Neurologic: Reports weakness Hematologic/Lymphatic Hematologic/Lymphatic: Denies easy bleeding or easy bruising Allergic/Immunologic Allergic/Immunologic ED: Denies mouth swelling, tongue swelling or urticaria EXAM Physical Exam Const Vital Signs: 10/28/24 17:46 10/28/24 17:49 10/28/24 17:52 Temperature 97.5 F L 98.6 F Temperature Source Temporal Oral Pulse Rate 145 H 108 H Respiratory Rate 24 H 30 H Respiratory Effort Normal Short of Breath Respiratory Pattern Normal Blood Pressure 196/166 H 181/91 H Blood Pressure Mean 176 121 Pulse Ox 99 97 Oxygen Delivery Method Room Air Room Air 10/28/24 18:48 10/28/24 19:00 10/28/24 20:00 Temperature 98 F 97.3 F L Temperature Source Temporal Temporal Pulse Rate 78 78 66 Respiratory Rate 20 H 21 H Respiratory Effort Respiratory Pattern Blood Pressure 162/80 H 149/98 H 133/81 H Blood Pressure Mean 107 115 98 Pulse Ox 96 96 100 Oxygen Delivery Method Room Air 10/28/24 21:00 10/28/24 21:10 Temperature 98.3 F Temperature Source Pulse Rate 69 69 Respiratory Rate 17 17 Respiratory Effort Respiratory Pattern Blood Pressure 133/85 H 133/85 H Blood Pressure Mean 101 101 Pulse Ox 96 96 Oxygen Delivery Method Positive well nourished and well developed General Appearance ED: well developed and NAD HEENT Reports TM's clear and moist mucous membranes HEENT Narrative: Mildly enlarged and swollen uvula present. It is midline. No obvious postnasal drip appreciated. Normal tonsils. No trismus. No elevation of the sublingual mucosa. Tympanic Membrane ED: Yes TM's clear Eyes PERRL and EOMs intact bilaterally Neck no lymphadenopathy and supple Neck Narrative: No stridor Chest Wall inspection of chest normal Resp normal respiratory effort and clear to auscultation bilaterally Cardio regular rate and regular rhythm GI normal to inspection, nondistended, normoactive bowel sounds Extremity normal to inspection General Extremety ED: Negative for edema or tenderness General Extremity: Negative for edema Neuro oriented x3 Sensorium / Orientation: alert Motor Exam: Negative for general weakness Psych mental status grossly normal Skin no rashes or lesions noted and no wounds MDM MDM MDM Narrative Medical decision making narrative: Patient valuated for sensation of swelling and difficulty swallowing. Patient overall is well-appearing. Upon arrival he is hypertensive however I am not sure how accurate this blood pressure was. Differential includes uvulitis, postnasal drip, pharyngitis, viral syndrome, pneumonia, dehydration, electrolyte abnormality and angioedema. Physical exam was not consistent with angioedema. He overall is well-appearing. CBC, CMP and flu swab all largely unremarkable. Chest x-ray reviewed by myself as well as radiology does not show any acute process. Discussed risk and benefits of a dose of Decadron as I suspect he has uvulitis which is causing foreign body sensation in his throat. Suspect this is viral in nature. Given that his blood sugars relatively well-controlled we will give a dose of Decadron. Will be discharged home with symptomatic treatment including [id number] Coricidin spray for his throat. Encouraged to follow-up outpatient with his primary care doctor. Given return precautions. Discharged home in stable condition. Lab Data Attestation: I reviewed the patient's lab results. Labs: Laboratory Results - last 24 hr 10/28/24 18:07 WBC 9.0 RBC 6.07 Hgb 16.1 Hct 50.6 MCV 83.4 MCH 26.5 L MCHC 31.8 L RDW Std Deviation 42.5 RDW Coeff of Malu 14.1 Plt Count 365 MPV 9.2 Immature Gran % (Auto) 0.100 Neut % (Auto) 56.3 Lymph % (Auto) 35.0 [place] % (Auto) 7.0 Eos % (Auto) 0.9 Baso % (Auto) 0.7 Absolute Neuts (auto) 5.1 Absolute Lymphs (auto) 3.15 Nucleated RBC % 0 Sodium 135 L Potassium 3.6 Chloride 103 Carbon Dioxide 23.0 Anion Gap 9 BUN 18 Creatinine 1.06 Estim Creat Clear Calc 86.75 Est GFR (MDRD) Af Amer 91 Est GFR (MDRD) Non-Af 76 BUN/Creatinine Ratio 17.0 Glucose 112 H Calcium 9.5 Total Bilirubin 0.60 AST 17 ALT 28 Alkaline Phosphatase 68 Total Protein 8.5 H Albumin 4.3 Globulin 4.2 Albumin/Globulin Ratio 1.0 Radiography Chest X-Ray - ED: 2 View, Read by ED Physician, Read by Radiologist and No Acute Disease Diagnostic Testing: Clinical Impression(s) from Imaging Studies Chest X-Ray 10/28/24 18:40 IMPRESSION: No active cardiopulmonary disease. Reading Location: [id number] Rhythm Strip Rhythm Strip: Sinus Rhythm Rate: 73 Ectopy: None EKG Initial EKG: Attestation: I personally reviewed and interpreted this EKG as follows: Interpretation: Sinus Rhythm Comments: Normal sinus rhythm at a rate of 73 bpm Normal axis Normal intervals Normal ST segments Discharge Plan Triage Chief Complaint: Edema ED Provider: Amalia Flores Dx/Rx/DC Orders Clinical Impression: Uvulitis Instructions: ED Uvulitis Prescriptions: No Action aspirin 81 MG tablet 81 mg PO DAILY lisinopril 40 mg tablet 30 mg PO BID metformin 500 mg tablet extended release 24 hr 500 mg PO BID rosuvastatin 10 mg tablet 10 mg PO QHS metoclopramide HCl [Reglan] 5 mg tablet 5 mg PO Q8H PRN PRN (Reason: headache) 3 Days Qty: 12 0RF Primary Care Provider: James Rizzo Referrals: James Rizzo MD [Primary Care Provider] - Activity Restrictions/Additional Instructions: Take [id number] ibuprofen to help with discomfort in your throat inflammation. I also recommend [id number] Coricidin spray to help with the discomfort in the back of your throat. Drink plenty of liquids. Follow-up with your primary care doctor. Print Language: Turkish Disposition Disposition: Home, Self Care Discharge Date/Time: 10/28/24 21:11
[2024-10-28] MEDS: dexAMETHasone 10 MG/ML Vial 6 MG PO.IVFORM (20:59)
== END 2024-10-28 21:11 | disposition home or self-care (01) ==
PROVIDERS: Emergency Provider Emergency Medicine; PCP Family Medicine; Visit Provider Emergency Medicine
DX: K12.2 Cellulitis and abscess of mouth (principal); R73.03 Prediabetes; R42 Dizziness and giddiness; Z11.52 Encounter for screening for COVID-19; I10 Essential (primary) hypertension; E78.5 Hyperlipidemia, unspecified; M54.9 Dorsalgia, unspecified; G89.29 Other chronic pain; N40.0 Benign prostatic hyperplasia without lower urinary tract symptoms; Z79.82 Long term (current) use of aspirin; Z79.84 Long term (current) use of oral hypoglycemic drugs; Z79.899 Other long term (current) drug therapy
CPT/HCPCS: 71046; 80053; 85025; 87631; 93005; 99284; A4216